=== PATIENT | female | born 1965 ===

== ENCOUNTER 2025-05-24 05:20 | Emergency (ER) | payer MEDICARE, MEDICAID, SELFPAY ==
--- NOTE | ~2025-05-24 | XR_ITS ---
CLINICAL HISTORY: Left sided rib pain 9 view, chest and bilateral ribs Comparison: None provided Findings: No displaced fracture. No destructive osseous lesions identified. Right chest port in place. Heart size is normal. The visualized lungs are normal. IMPRESSION: 1. No acute findings. This document has been electronically signed by: Sofi Perry MD on 05/24/2025 07:33:09
[2025-05-24 05:27] VITALS: BP 204/6; PULSE 58; RESP 20; TEMP 36.7; O2SAT 99; BMI 54.1
--- OUTSIDE RECORDS SUMMARY | 2025-05-24 05:56 | XMS_ITS | Clinical Summary ---
Author Organization [facility] [address] [facility] Address [address] [place] [address] Phone Care Team Providers Care Supervisor Painting Name Role Phone Patric Zayas DO Primary Care Provider [phone] Allergies Active Allergy Reactions Criticality Noted Date Comments Acetaminophen-Codeine 10/18/2017 Other Reaction(s): Hives/Urticaria And throat close Cephalexin 06/03/2017 ? Reaction Codeine 05/13/2017 Cortisone 04/03/2018 Cannot have cortisone injection due to her cancer per patient Diclofenac Sodium Anaphylaxis High 11/06/2017 Other Reaction(s): OTHER Ineffective Oral medication Metronidazole 10/18/2017 ? Reaction Morphine 01/03/2018 Severely irritated IBS ,problems with liver and bowels Nabumetone 06/03/2017 Pregabalin 10/18/2017 Other Reaction(s): OTHER Mood changes severe Medications fluticasone propionate (FLONASE) 50 mcg/actuation nasal spray Administer 2 sprays into each nostril 1 (one) time each day. 0 Active clotrimazole (LOTRIMIN) 1 % cream APPLY A THIN LAYER TO AFFECTED AREA BENEATH BREASTS TWICE A DAY FOR 2 WEEKS 0 Active cetirizine (ZyrTEC) 10 mg tablet Take 1 tablet (10 mg total) by mouth 1 (one) time each day. 9 Active amLODIPine (NORVASC) 10 mg tablet Take 1 tablet (10 mg total) by mouth 1 (one) time each day. 9 Active lisinopril (PRINIVIL,ZESTRIL) 40 mg tablet Take 1 tablet (40 mg total) by mouth 1 (one) time each day. 9 Active metoprolol succinate (TOPROL-XL) 100 mg 24 hr tablet Take 1 tablet (100 mg total) by mouth 1 (one) time each day. 9 Active albuterol HFA (Ventolin HFA) 90 mcg/actuation inhaler Inhale 1-2 Puffs into the lungs every 6 hours as needed for Wheezing or Shortness of Breath. 9 Active esomeprazole (NexIUM) [address] capsule Take 1 Cap by mouth 2 times daily. 9 Active LORazepam (ATIVAN) 1 mg tablet 3 (three) times a day. 8 Active NITROGLYCERIN ORAL Take by mouth. Prn Active ondansetron (ZOFRAN) 4 mg tablet Take 1 tablet (4 mg total) by mouth. Active lidocaine (LIDODERM) 5 % patch APPLY 1 PATCH TOPICALLY TO THE SKIN DAILY. MAY WEAR UP TO 12 HOURS 4 Active ipratropium-albute roL (DUONEB) 0.5-2.5 mg/3 mL nebulizer solution Inhale 3 mL by mouth. 3 Active Breyna 80-4.5 mcg/actuation inhaler INHALE 2 PUFFS BY MOUTH TWICE DAILY J 45.909 4 Active nebulizer and compressor (Comp-Air Nebulizer Compressor) device See Instructions, # 1 each, Maintenance, Use PRN with nebulized mdiations, 02/28/23 13:01:00 EDT, Supply, 160.58, cm, 12/17/22 10:04:00 EST, Height, 103, kg, 03/21/21 13:54:00 EDT, Dry Weight 3 Active hyoscyamine (Levbid) 0.375 mg 12 hr tablet Take 1 tablet (0.375 mg total) by mouth every 12 (twelve) hours if needed for cramping. Do not crush or chew. 60 tablet 12 4 025 Active lactulose (CHRONULAC) solutionIndication s:Constipation by delayed colonic transit TAKE 30 ML BY MOUTH TWICE DAILY 1800 mL 3 5 Active predniSONE (DELTASONE) 5 mg tablet Take 1 tablet (5 mg total) by mouth 1 (one) time each day. Active ondansetron ODT (ZOFRAN-ODT) 4 mg disintegrating tabletIndications: Nausea Take 1 tablet (4 mg total) by mouth every 8 (eight) hours if needed for nausea. 20 tablet 2 5 Active Active Problems Problem Noted Date Diagnosed Date Colon cancer screening 10/07/2024 Assessment & Plan (10/07/2024 1:54 PM EST): Reviewed with patient she has not had a recent colonoscopy and in fact is overdue for colon cancer screening. Discussed options such as fit test, Cologuard and colonoscopy. At this time despite my explanation she refuses colon cancer screening. She is aware of the risks. Abdominal pain 10/07/2024 Assessment & Plan (03/31/2025 2:05 PM EDT): 59-year-old female with history of chronic abdominal pain, status post workup in the past without obvious pathology. I do believe a significant component of this is her IBS which is flared by stress related to her 's poor health. Once more we had a long discussion regarding her medication profile and its appropriate use and timing. 1. Continue hyoscyamine and Nexium. Discussed dosing regimens. 2. Plan for diagnostic gastroscopy given current symptoms. I did review the indications, alternatives and risks which include but are not limited to bleeding, infection, perforation, missed diagnosis, failed procedure, surgery, etc. 3. Consideration for gastric emptying study based on endoscopic findings. Assessment & Plan (10/07/2024 1:54 PM EST): Patient with generalized abdominal pain that has been chronic. More than likely related to her known IBS and constipation. Patient canceled CT scan previously arranged. Is willing to go forward at this time. Orders: CT Abdomen Pelvis wo and w Contrast; Future Lymphoma (CMS/HCC V24, CMS/HCC V28) 10/01/2024 IBS (irritable bowel syndrome) 10/01/2024 Assessment & Plan (03/31/2025 2:05 PM EDT): Once more discussed her chronic issues of IBS. Discussed the role of medication. Discussed the role of diet. Appropriate handouts were provided. 1. Routine follow-up in 1 year. Assessment & Plan (01/08/2025 5:08 PM EST): Appointment cut short, patient refusing to see female provider. Requests appointment be rescheduled with Dr. Escobar-only. Advised her to continue dicyclomine if helpful. Encouraged scheduling of CT scan prior to follow up. Assessment & Plan (10/07/2024 1:54 PM EST): Once more discussed negative impact of stress. Appears to be failing dicyclomine. Will try other IBS med. 1. DC dicyclomine. 2. begin hyoscyamine 0.375 mg p.o. twice daily. 3. Follow-up in 3 months. Allergic rhinitis 06/16/2018 Osteoarthritis 06/10/2018 Overview (09/18/2024): Cervical, Thoracic, & Lumbar spine GERD (gastroesophageal reflux disease) 8 Assessment & Plan (10/07/2024 1:54 PM EST): 58-year-old female with longstanding history of acid reflux and upper GI symptoms. Many of her symptoms revolve around her level of stress and anxiety. We did take the opportunity to review her 2022 endoscopy and biopsies. 1. Continue Nexium 40 mg p.o. twice daily. 2. Reviewed antireflux regimen with handout provided. 3. Discussed antireflux diet. 4. Avoid aspirin and NSAIDs if clinically possible. Osteopenia 06/10/2018 Overview (09/18/2024): Lumbar spine -1.7, femoral neck -1.2 (07/29/17 BMD scanned in 11/2017 transfer records) Chronic low back pain 12/19/2017 Fatty liver 12/19/2017 Assessment & Plan (10/07/2024 1:54 PM EST): Appears stable. Once more discussed the role of weight loss, exercise, lipid control, etc. Anxiety 09/24/2017 Overview (09/18/2024): W/ agoraphobia. Arthritis 09/24/2017 Bipolar disorder ([facility] V24, [facility] V28) 05/2017 HTN (hypertension) 09/24/2017 Encounters Date Type Department Care Team Description 05/11/2025 Telephone Gastroenterology - [address] [facility] [address] [address] Benigno Escobar MD 04/01/2025 Telephone Gastroenterology - [address] [address] [place] 03/31/2025 1:50 PM EDT Office Visit Gastroenterology - [address] [address] Benigno Escobar MD Generalized abdominal pain (Primary Dx); Adenomatous polyp; Irritable bowel syndrome with both constipation and diarrhea 03/10/2025 Telephone Gastroenterology - [address] [place] [phone] Adela Panda NP from Last 3 Months Immunizations Name Administration Dates Next Due Pneumococcal polysaccharide 23 valent (Pneumovax 23) 2yo and older 01/04/2010 Surgical History Surgery Date Site/Laterality Comments OTHER SURGICAL HISTORY PROCEDURE:left inguinal biopsy OTHER SURGICAL HISTORY PROCEDURE:diverticulosi s ESOPHAGOGASTRODUODENOSCOPY 07/19/2023 - 08/17/2023 COLONOSCOPY Medical History Medical History Date Comments GERD (gastroesophageal reflux disease) DX:GERD (gastroesophageal reflux disease) IBS (irritable bowel syndrome) D X:IBS (irritable bowel syndrome) Lymphoma ([facility] V24, [facility] V28) DX:Lymphoma ([facility]) Social History Tobacco Use Types Packs/Day Years Used Date Smoking Tobacco: Former Cigarettes Smokeless Tobacco: Former Tobacco Cessation:Counseling Given: Not Answered Alcohol Use Standard Drinks/Week Comments Not Currently 0 (1 standard drink = 0.6 oz pur e alcohol) ? Comments Unknown Sex and Gender Information Value Date Recorded Sex Assigned at Choose not to disclose 4:06 PM EST Legal Sex Female 10:03 PM EST Gender Identity Choose not to disclose 4:06 PM EST Sexual Orientation Choose not to disclose 2023 4:06 PM EST Obstetrics History Last Filed Vital Signs Vital Sign Reading Time Taken Comments Blood Pressure 205/104 10/12/2024 1:53 PM EST Pulse 87 10/12/2024 1:53 PM EST Temperature 36.9 C (98.5 F) 10/12/2024 1:53 PM EST Respiratory Rate - - Oxygen Saturation 100% 10/12/2024 1:53 PM EST Inhaled Oxygen Concentration - - Weight 98.4 kg (217 lb) 03/31/2025 1:41 PM EDT Height 167.6 cm (5' 6 ) 03/31/2025 1:41 PM EDT Body Mass Index 35.02 03/31/2025 1:41 PM EDT Plan of Treatment Upcoming Encounters Date Type Department Care Team (Late st Contact Info) Description 06/09/2025 8:00 AM EDT Appointment [facility] [address] [place] [id number] Benigno Escobar MD [address] [address] Health Maintenance Due Date Last Done Comments Breast Cancer Screening 1965 DTaP,Tdap,and Td Vaccines (1 - Tdap) 1983 Zoster Vaccines (1 of 2) 1983 Cervical Cancer Screening: P ap Smear 1985 Pneumococcal Vaccine: 50+ Years (2 of 2 - PCV) 01/04/2011 01/04/2010 Pneumococcal Vaccine: Pediatrics (0 to 5 Years) and At-Risk Patients (6 to 64 Years) (2 of 2 - PCV) 01/04/2011 01/04/2010 COVID-19 Vaccine (3 - Modern a risk series) 06/13/2021 05/16/2021, 04/18/2021 Colorectal Cancer Screening: Colonoscopy 10/25/2022 Depression Screening 10/25/2022 HIV Screening 10/25/2022 Medicare Annual Wellness Visit 10/25/2022 Osteoporosis Screening (Bone Density Screening) 10/25/2022 Social Influencers of Health Screening 10/25/2022 Cholesterol Screening (Lipid Panel) 12/11/2023 12/11/2018 Influenza Vaccine (#1) 2025 Hypertension/CHF/CAD Annual BMP Blood Test 11/12/2025 11/12/2024, 06/20/2001 RSV Immunization Adult Patients (1 - 1-dose 75+ series) 2039 Hepatitis C Screening Completed 07/23/2019 HIB Vaccines Aged Out No longer eligi ble based on patient's age to complete this topic HPV Vaccines Aged Out No longer eligi ble based on patient's age to complete this topic Hepatitis A Vaccines Aged Out No long er eligible based on patient's age to complete this topic Hepatitis B Vaccines Aged Out No long er eligible based on patient's age to complete this topic IPV Vaccines Aged Out No longer eligi ble based on patient's age to complete this topic MMR Vaccines Aged Out No longer eligi ble based on patient's age to complete this topic Meningococcal ACWY Vaccine Aged Out N o longer eligible based on patient's age to complete this topic Meningococcal B Vaccine Aged Out No l onger eligible based on patient's age to complete this topic RSV Immunization Patients Under 20 months Aged Out No longer eligible b ased on patient's age to complete this topic Varicella Vaccines Aged Out No longer eligible based on patient's age to complete this topic Procedures Procedure Name Priority Date/Time Associated Diagnosis Comments COMPREHENSIVE METABOLIC PANEL Routine 11/12/2024 3:18 PM EST History of follicular lymphoma HEPATITIS C SCREENING Routine 07/23/2019 LIPID PANEL Routine 12/11/2018 from Last 3 Months or Most Recently Relevant to Health Maintenance Results * (ABNORMAL) Comprehensive metabolic panel (11/12/2024 3:18 PM EST) Sodium 142 133 - 145 mmol/L LAB CHEMISTRY METHOD 11/12/2024 5:09 PM EST [facility] Potassium 3.7 3.5 - 5.5 mmol/L LAB CHEMISTRY METHOD 11/12/2024 5:09 PM EST [facility] Chloride 112(H) 96 - 110 mmol/L LAB CHEMISTRY METHOD 11/12/2024 5:09 PM EST [facility] CO2 27 21 - 32 mmol/L LAB CHEMISTRY METHOD 11/12/2024 5:09 PM [facility] Anion Gap 3 3 - 11 LAB CHEMISTRY METHOD 11/12/2024 5:09 PM [facility] Glucose 104(H) 70 - 100 mg/dL LAB CHEMISTRY METHOD 11/12/2024 5:09 PM [facility] BUN 11 5 - 25 mg/dL LAB CHEMISTRY METHOD 11/12/2024 5:09 PM [facility] Creatinine 0.84 0.50 - 1.30 mg/dL LAB CHEMISTRY METHOD 11/12/2024 5:09 PM [facility] eGFR 80 >=60 mL/min/1. 73m2 LAB CHEMISTRY METHOD 11/12/2024 5:09 PM [facility] Comment: For non-binary individuals or unknown sex, the equation for female sex is used to calculate the estimated glomerular filtration rate (eGFR). Calculation based on the Chronic Kidney Disease Epidemiology Collaboration (CKD-EPI) equation refit without adjustment for race. BUN/Creatinine Ratio 13.1 LAB CHEMISTRY METHOD 11/12/2024 5:09 PM [facility] Calcium 9.2 8.5 - 10.5 mg/dL LAB CHEMISTRY METHOD 11/12/2024 5:09 PM [facility] AST (SGOT) 13 10 - 42 unit/L LAB CHEMISTRY METHOD 11/12/2024 5:09 PM [facility] ALT (SGPT) 22 10 - 60 unit/L LAB CHEMISTRY METHOD 11/12/2024 5:09 PM [facility] Alkaline Phosphatase 63 42 - 121 unit/L LAB CHEMISTRY METHOD 11/12/2024 5:09 PM [facility] Total Protein 6.5 6.0 - 8.0 g/dL LAB CHEMISTRY METHOD 11/12/2024 5:09 PM [facility] Albumin 3.9 3.2 - 5.0 g/dL LAB CHEMISTRY METHOD 11/12/2024 5:09 PM EST [facility] Total Bilirubin 0.5 0.0 - 1.4 mg/dL LAB CHEMISTRY METHOD 11/12/2024 5:09 PM EST [facility] Blood Blood sample taken from central line / Unknown Existing Catheter / Unknown 11/12/2024 3:18 PM EST 11/12/2024 4:38 PM EST Paul Mir MD LAB BLOOD ORDERABLES Final R esult [facility] [address] [place] [address], [place] [phone] * Hepatitis C Screening (07/23/2019) [facility] Hepatitis C Screening abstracted Historical Lou [facility] Final Result * Lipid panel (12/11/2018) [facility] LDL/HDL Ratio 0 Comment:abstracted, no inter pretation Triglycerides 0 mg/dL Comment:abstracted, no inter pretation Cholesterol 0 mg/dL Comment:abstracted, no inter pretation HDL 0 mg/dL Comment:abstracted, no inter pretation LDL Cholesterol 0 mg/dL Comment:abstracted, no inter pretation Blood Venous blood specimen / Unknown Historical Provider LAB BLOOD ORDERABLES Theodora l Result from Last 3 Months or Most Recently Relevant to Health Maintenance Insurance MEDICARE MEDICAID - [place] Care Teams Supervisor Painting Relationship Specialty Start Date End Date Patric Zayas DO [address] [place] [id number] PCP - General Internal Medicine 07/21/21
--- OUTSIDE RECORDS SUMMARY | 2025-05-24 05:57 | XMS_ITS | Clinical Summary ---
Author Organization [facility] Address [address] [place] [address] Care Team Providers Care Teacher Dancing Name Role Phone Patric Zayas MD Primary Care Provider [phone] Allergies Active Allergy Reactions Criticality Noted Date Comments Codeine 05/13/2017 Metronidazole 08/06/2019 Cephalexin 06/03/2017 Morphine 08/06/2019 Nabumetone 06/03/2017 Medications Medication Sig Dispensed Refills Start Date End Date Status albuterol (PROVENTIL HFA;VENTOLIN HFA) 108 (90 BASE) MCG/ACT inhaler Inhale 2 puffs into the lungs every 6 (six) hours as needed for wheezing. 0 Active lisinopril (PRINIVIL,ZESTRIL) tablet 20 mg Take 20 mg by mouth daily. 0 Active esomeprazole (NEXIUM) 40 MG packet Take 80 mg by mouth every morning before breakfast. 0 Active hydrOXYzine (ATARAX/VISTARIL) 25 MG capsule Take 150 mg by mouth daily. 0 Active metoprolol succinate (TOPROL-XL) 24 hr tablet 50 mg Take 100 mg by mouth daily. 0 Active amLODIPine (NORVASC) tablet 10 mg Take 10 mg by mouth daily. 0 Active Benzocaine-Benzethoni um (LANACANE EX) Apply topically as needed. 0 Active fluticasone (FLONASE) 50 MCG/ACT nasal spray spray/apply 1 spray in each nostril daily. 0 Active LORazepam (ATIVAN) 1 MG tablet Take 1 mg by mouth every 6 (six) hours as needed. 0 Active ondansetron (ZOFRAN) 4 MG tablet Take 4 mg by mouth 3 (three) times a day. 0 Active nitroglycerin (NITRODUR) 0.1 MG/HR Place 1 patch onto the skin daily. 0 Active dicyclomine (BENTYL) 10 MG capsule Take 10 mg by mouth 4 (four) times a day before meals and at bedtime. 0 Active amitriptyline (ELAVIL) tablet 50 mg Take 50 mg by mouth daily. 0 Active Active Problems No known active problems Social History Tobacco Use Types Packs/Day Years Used Date Smoking Tobacco: Every Day Cigarettes 0.5 Smokeless Tobacco: Never Comments:pt trying to quite Alcohol Use Standard Drinks/Week Comments No 0 (1 standard drink = 0.6 oz pur e alcohol) Sex and Gender Information Value Date Recorded Sex Assigned at Female 10/15/2022 2:05 PM EST Gender Identity Not on file Sexual Orientation Not on file Job Start Date Occupation Industry Not on file Not on file Not on file Last Filed Vital Signs Vital Sign Reading Time Taken Comments Blood Pressure 180/84 07/10/2022 10:48 AM EDT Pulse 49 07/10/2023 10:44 AM EDT Temperature 36.3 C (97.3 F) 07/10/2023 10:44 AM EDT Respiratory Rate - - Oxygen Saturation 99% 07/10/2023 10:44 AM EDT Inhaled Oxygen Concentration - - Weight 108.9 kg (240 lb) 07/10/2022 10:48 AM EDT Pt reported Height 165.1 cm (5' 5 ) 12/22/2019 3:02 PM EST Body Mass Index 39.94 12/22/2019 3:02 PM EST Plan of Treatment Health Maintenance Due Date Last Done Comments Hepatitis C Screening 1965 COVID-19 Vaccine (#1) 05/24/1965 Depression Screening 1976 Preventative Health Evaluation 1982 Tobacco Cessation Counseling 1982 DTap / Tdap / Td (1 - Tdap) 1983 Cervical Cancer Screening (P ap Smear) 1985 Colon Cancer Screening (Colonoscopy) 2009 Pneumococcal Vaccine (2 of 2 - PCV) 01/04/2011 01/04/2010 Breast Cancer Screening (Mammogram) 2014 Shingrix-Zoster Vaccine (1 of 2) 2014 Influenza Vaccine (#1) 2025 RSV Adult > 60+ Yrs or Pregn ant (1 - 1-dose 75+ series) 2039 Hepatitis B Vaccines Aged Out No long er eligible based on patient's age to complete this topic RSV Ped < 20 months Aged Out No longe r eligible based on patient's age to complete this topic Care Teams Teacher Dancing Relationship Specialty Start Date End Date Patric Zayas MD [address] [place] [address], [place] [address] PCP - General Internal Medicine 07/21/21
--- OUTSIDE RECORDS SUMMARY | 2025-05-24 05:57 | XMS_ITS | Data Portability ---
Author Organization [place] - [facility], Allergy Address [address] [place] [id number] Care Team Providers Care Cyber Operator Name Role Phone VIANEY PATEL Primary Care Provider [phone] Assessment Encounter Date Assessment Date Assessment LastModified by Organization Details LastModified Time 02/26/2025 02/26/2025 T tubes are present bilaterally. No sign of infection. Recommend tube check in 6 months. Patient describes tinnitus and hyperacusis. These may represent sensory overload from her increased stress and migraine. Audiometric testing was obtained confirming bilateral sensorineural hearing loss. Hearing aid evaluation through [facility] provider is recommended. [email or web address] Not available 02/26/2025 10:48:28 Plan of Treatment Reminders Order Date Submit Date Provider Last Modified By Organization Details Last Modified Time Details Appointments Establish ed 15 2024 09:00A M SHAQUILLE VILLAREAL MD Not available Not available Not available Lab None recorded. Referral None recorded. Procedures None recorded. Surgeries None recorded. Imaging None recorded. Medication Orders None recorded. Patient TargetsNo targets recorded. Patient InstructionsNo instructions recorded. Reason for Referral None Reported. Results Created Date Observation Date Name Description Value Unit Range Abnormal Flag Note LastModifiedBy Organization Detail LastModifiedTime 03/01/20 25 audio gram No observ ation record ed. BARCODE Not Available 2024 09:21:06 Result Notes None recorded. Problems Name Problem SNOMED Code Status Onset Date Resolution Date Notes Provider Name and Address Organization Details Recorded Time Otorrhea of bilateral ears 59702393951 88355 Active 2021 Otorrhea, bilateral ; Note: Date Diagnosed : 2 6:06 PM (H92.13) Not Available [facility] 4 03:08:52 Otorrhea of right ear 07395005117 44622 Active 2022 Otorrhea, right ear; Note: Date Diagnosed : 3 12:13 PM (H92.11) Not Available [facility] 4 03:08:52 Abnormal auditory perceptio n 84133207 Active 2016 Other abnormal auditory perceptio ns, bilateral ; Note: Date Diagnosed : 08/05/2017 2:19 PM (H93.293) Not Available [facility] 4 03:08:52 Mixed conductiv e and sensorine ural hearing loss, bilateral 949907492 Active 2020 Mixed conductiv e and sensorine ural hearing loss, bilateral ; Note: Date Diagnosed : 03/06/2021 11:54 AM (H90.6) Not Available [facility] 4 03:08:51 Tobacco user 790528994 Active 2016 Tobacco use; Note: Date Diagnosed : 08/05/2017 2:27 PM (Z72.0) Not Available [facility] 4 03:08:50 Dysphonia 69576146 Active 2022 Hoarsenes s; Note: Date Diagnosed : 05/31/2023 5:12 PM (R49.0) Not Available [facility] 4 03:08:51 Acute serous otitis media of bilateral ears 30195530094 93787 Active 2019 Acute serous otitis media, bilateral ; Note: Date Diagnosed : 01/21/2020 2:45 PM (H65.03) Not Available [facility] 4 03:08:51 Allergic rhinitis 08719948 Active 2021 Other allergic rhinitis; Note: Date Diagnosed : 2 6:06 PM (J30.89) Not Available [facility] 4 03:08:51 Sensorine ural hearing loss of bilateral ears 631337474 Active 2020 Sensorine ural hearing loss, bilateral ; Note: Date Diagnosed : 04/18/2021 10:06 AM (H90.3) Not Available [facility] 4 03:08:51 Bilateral disorder of Eustachia n tubes 07676311131 90062 Active 2016 Other specified disorders of Eustachia n tube, bilateral ; Note: Date Diagnosed : 08/05/2017 2:14 PM (H69.83) Not Available [facility] 4 03:08:51 Dysfuncti on of eustachia n tube 06629914 Active 2020 Eustachia n tube dysfuncti on; Location: bilateral CMS Risk: low risk CMS Treatment : establish ed problem (to examiner) : stable or improved Condition : stable No te: Date Diagnosed : 08/22/2014 12:47 PM (381.81) Not Available [facility] 4 03:08:52 Cervical lymphaden opathy 577826630 Active 2024 SHAQUILLE VILLAREAL MD [address] [place] [address],[place] [address], [place], [phone] , [place] - [facility] 14:24:49 Bilateral tinnitus 40758595842 02 Active 2024 SHAQUILLE VILLAREAL MD [address] [place] [address],[place] [address], [place], [phone] , [place] - [facility] 09:54:49 Hyperacus is 54714134 Active 2024 SHAQUILLE VILLAREAL MD [address] [place] [address],[place] [address], [place], [phone] , [place] - [facility] 09:55:10 Hyperacus is 74864853 Active 2024 SHAQUILLE VILLAREAL MD [address] [place] [address],[place] [address], [place], [phone] , [place] - [facility] 09:55:13 Problem Notes None recorded. Procedures Surgical History Date Name Laterality Status Provider Name and Address Organization Details Recorded Time 02/27/20 25 Comp Audio with Tymps - 36848 & 20728 completed [facility] [address] [facility] [place] [address], [place], [phone], [place] - [facility] 02/26/2025 10:29:38 section completed Do Berg [place] - [facility] 02/26/2025 09:43:00 Myringotomy Tube Placement completed Do Berg [place] - [facility] 02/26/2025 09:43:07 discectomy of spine completed Do Berg [place] [facility] 02/26/2025 09:43:19 ligation of fallopian tube completed Do Berg [place] [facility] 02/26/2025 09:43:25 tooth extraction completed Do Berg [place] [facility] 02/26/2025 09:43:47 Imaging Results None recorded. Procedure Notes None recorded. Medical Equipment None Reported. Allergies Allergen ID Allergen Name Allergen Category Reaction Reaction Severity Criticality Documentation Date Start Date Code Code System Note Provider Name and Address Organization Details Recorded Time 726188 Tylenol with Codeine medicatio n other Not available Not available 03/31/202408771 6 RxNorm React ion: Unkno wn; Not Available [facility] 01:27:10 Medications Name Sig Start Date Stop Date Status Note LastModified by Organization Details LastModified Time doxycycli ne hyclate 100 mg capsule TAKE 1 CAPSULE BY MOUTH TWICE DAILY FOR 7 DAYS 02/26 completed Not Available Not Available Not Available cetirizin e 10 mg tablet TAKE 1 TABLET BY MOUTH EVERY DAY active Not Available Not Available No t Available metoprolo l succinate ER 50 mg tablet,ex tended release 24 hr 02/23 completed Medicati on ID: [id number] D uration Value: 90 Brand Name: metoprol ol succinat e Send Method: E-Prescr ibed Sub s Allowed: subs OK Medic ationGen ericName : metoprol ol succinat e Not Available Not Available Not Available meloxicam 15 mg tablet TAKE 1 TABLET BY MOUTH EVERY DAY 02/26 completed Not Available Not Available Not Available prednison e 20 mg tablet TAKE 3 TABLETS BY MOUTH AT THE SAME TIME IN THE MORNING FOR 3 DAYS THEN TAKE 2 TABLETS BY MOUTH FOR 3 DAYS THEN TAKE 1 TABLET BY MOUTH FOR 3 DAYS 02/26 completed Not Available Not Available Not Available metoprolo l succinate ER 100 mg tablet,ex tended release 24 hr TAKE 1/2 TABLET BY MOUTH EVERY DAY active Not Available Not Available No t Available clonazepa m 1 mg tablet 02/23 completed Medicati on ID: [id number] D uration Value: 30 Brand Name: clonazep am Send Method: E-Prescr ibed Sub s Allowed: subs OK Speci al Instruct ion: TAKE 1 TABLET BY MOUTH EVERY DAY AT BEDTIME NEEDED FOR ANXIETY Medicati onGeneri cName: clonazep am Not Available Not Available Not Available hydroxyzi ne pamoate 50 mg capsule 02/23 completed Medicati on ID: [id number] D uration Value: 30 Brand Name: hydroxyz ine pamoate Send Method: E-Prescr ibed Sub s Allowed: subs OK Speci al Instruct ion: 1 CAPSULE BY MOUTH 3 TIMES A DAY NEEDED FOR ANXIETY Medicati onGeneri cName: hydroxyz ine pamoate Not Available Not Available Not Available ofloxacin 0.3 % ear drops Apply 5 drop into both ears twice a day 02/26 completed Medicati on ID: [id number] D uration Value: 10 Brand Name: ofloxaci n Send Method: E-Prescr ibed Sub s Allowed: subs OK Medic ationGen ericName : ofloxaci n Not Available Not Available Not Available amlodipin e 10 mg tablet TAKE 1 TABLET BY MOUTH DAILY active Not Available Not Available No t Available esomepraz ole magnesium 40 mg capsule,d elayed release TAKE 1 CAPSULE BY MOUTH TWICE DAILY active Not Available Not Available No t Available buspirone 10 mg tablet 02/26 completed Medicati on ID: [id number] B rand Name: buspiron e Send Method: E-Prescr ibed Sub s Allowed: subs OK Medic ationGen ericName : buspiron e Not Available Not Available Not Available lidocaine 5 % topical patch APPLY 1 PATCH TOPICALL Y TO THE SKIN DAILY. MAY WEAR UP TO 12 HOURS active Not Available Not Available No t Available oxycodone 30 mg tablet 02/23 completed Medicati on ID: [id number] D uration Value: 14 Brand Name: oxycodon e Send Method: E-Prescr ibed Sub s Allowed: subs OK Medic ationGen ericName : oxycodon e Not Available Not Available Not Available lorazepam 1 mg tablet TAKE 1 TABLET BY MOUTH THREE TIMES DAILY NEEDED FOR ANXIETY active Not Available Not Available No t Available albuterol sulfate HFA 90 mcg/actua tion aerosol inhaler INHALE 2 PUFFS BY MOUTH EVERY 6 HOURS NEEDED active Not Available Not Available No t Available lisinopri l 40 mg tablet TAKE 1 TABLET BY MOUTH DAILY 02/26 completed Not Available Not Available Not Available ondansetr on 4 mg disintegr ating tablet DISSOLVE 1 TABLET ON THE TONGUE EVERY 8 HOURS NEEDED FOR NAUSEA OR VOMITING active Not Available Not Available No t Available fluticaso ne propionat e 50 mcg/actua tion nasal spray,joanna pension SPRAY 1 SPRAY INTO EACH NOSTRIL EVERY DAY active Not Available Not Available No t Available clotrimaz ole 1 % topical cream APPLY TOPICALL Y TO THE AFFECTED AREA TWICE DAILY FOR 7 DAYS 02/26 completed Not Available Not Available Not Available dicyclomi ne 10 mg capsule TAKE 1 CAPSULE BY MOUTH FOUR TIMES DAILY NEEDED active Not Available Not Available No t Available naproxen 500 mg tablet TAKE 1 TABLET BY MOUTH TWICE DAILY FOR 14 DAYS 02/26 completed Not Available Not Available Not Available amoxicill in 875 mg-potass ium clavulana te 125 mg tablet TAKE 1 TABLET BY MOUTH EVERY 12 HOURS FOR 7 DAYS 02/26 completed Not Available Not Available Not Available Afrin (oxymetaz oline) 0.05 % nasal spray 2 spray into both nostrils 02/26 completed Medicati on ID: [id number] D uration Value: 3 Prescri bed By Name: KELLY Lane nd Name: Afrin (oxymeta zoline) Send Method: E-Prescr ibed Sub s Allowed: subs OK Medic ationGen ericName : Afrin (oxymeta zoline) Not Available Not Available Not Available Ciprodex 0.3 %-0.1 % ear drops,joanna pension Apply 4 drop into right ear twice a day 02/26 completed Medicati on ID: [id number] D uration Value: 14 Brand Name: Ciprodex Send Method: E-Prescr ibed Sub s Allowed: subs OK Medic ationGen ericName : Ciprodex Not Available Not Available Not Available lactulose 10 gram/15 mL oral solution TAKE 30 ML BY MOUTH TWICE DAILY active Not Available Not Available No t Available Advair HFA 115 mcg-21 mcg/actua tion aerosol inhaler INHALE 2 PUFFS BY MOUTH TWICE DAILY. RINSE MOUTH AND THROAT AFTER USE 02/26 completed Not Available Not Available Not Available oxycodone 20 mg tablet 02/23 completed Medicati on ID: [id number] D uration Value: 28 Brand Name: oxycodon e Send Method: E-Prescr ibed Sub s Allowed: subs OK Medic ationGen ericName : oxycodon e Not Available Not Available Not Available Breyna 80 mcg-4.5 mcg/actua tion HFA aerosol inhaler INHALE 2 PUFFS BY MOUTH TWICE DAILY J 45.909 active Not Available Not Available No t Available Vitals None Recorded Social History None recorded. Functional Status None recorded. Mental Status None recorded. Family History Nothing Reported. Medical History Condition Response Allergies/Hayfever Y Arthritis Y GERD/Reflux Y Cancer Y Migraines Y Headaches Y Fibromyalgia Y Hypertension Y Asthma Y Gynecological HistoryNo gynecological history recorded. Obstetrics History GPAL:G 0 P 0 0 0 0 Past Encounters Encounter ID Performer Location Encounter Start Date Encounter Closed Date Diagnosis/Indication Diagnosis SNOMED-CT Code Diagnosis ICD10 Code Diagnosis Note [id number] SHAQUILLE VILLAREAL MD [facility] [address] [address] 12/16/2024 14:26:08 12/16/2024 14:57:11 Cervical lymphadenopathy 360841457 R59.0 [id number] SHAQUILLE VILLAREAL MD [facility] [address] [address] 02/26/2025 09:30:04 02/26/2025 10:53:40 Bilateral tinnitus 5957339167 102 H93.13 Hyperacusis 99114017 H93 .233 Sensorineu ral hearing loss of bilateral ears 616410967 H90.3 [id number] KATHLEEN COLON [facility] [address] [address] 02/26/2025 10:29:12 03/01/2025 16:50:52 Sensorineural hearing loss of bilateral ears 115400054 H90.3 Audiologic al evaluation results: Right ear: Mild sloping to severe sensorineu ral hearing loss with good word recognitio n. Left ear: Mild sloping to profound sensorineu ral hearing loss with good word recognitio n. Tympanomet ry: Right Ear:Type B with large volume Left Ear:Type B with large volume Health Concerns Section Related Observation LastModified by Organization Detai ls LastModified Time None Recorded Concern Status LastModified by Organization Details LastModified Time None Recorded Advance Directives Directive None Recorded Payers Insurance Date Sequence Insurance Name Policy Number Policy Sun Covered Member ID Sun Member ID Guarantor Name 02/26/2025 1 [place] [employer] Pooja Ribeiro [id number] Pooja Ribeiro 02/23/2025 2 [place] [facility] Pooja Graciae [id number] Pooja Ribeiro Notes Date Note Type Note Provider Name and Address Organization Details Recorded Time 5 text/html Submental adenopathy 03/20/21 Gregory MUÑOZ, endoscopic bx - benign, [facility] 10/11/23 Kathie - right otorrhea rx ciprodex SHAQUILLE VILLAREAL MD [address] [place] [address], [phone], [facility] 12/16/2024 14:27:38 5 text/html ear pressure12/2024 started new med for IBS, shortly after developed tinnitus and sound sensitivitydecreased use of the med but continues with tinnitusmore stress with information that a cancer will need more treatment was offered hearing aids in past but is reluctant 03/20/21 Gregory MUÑOZ endoscopic bx - benign, [facility] 10/11/23 Kathie - right otorrhea rx ciprodex SHAQUILLE VILLAREAL MD [address] [place] [address],[address], [phone], [place] - [facility] 02/26/2025 10:48:41 OBGyn Episode No OBEpisode recorded.
[2025-05-24 07:45] VITALS: BP 170/85; PULSE 50; RESP 16; TEMP 36.1; O2SAT 98
--- NOTE | 2025-05-24 07:56 | ED.FALL ---
HPI - Fall General Chief Complaint: Fall Stated Complaint: left rib pain, fall Time Seen by Provider: 05/24/25 07:52 Source: patient Mode of arrival: ambulatory Limitations: no limitations History of Present Illness HPI Narrative: This is 59 years old the patient with a history of lymphoma presented to the emergency department complaining of left chest wall pain she said that she fell on Saturday fell down the stairs the fall was a mechanical no syncope denies any neck pain any abdominal pain any headache she is not anticoagulated Onset (ago): day(s) (3) Fall from: down stairs (#) Place fall occurred: home Loss of consciousness: none Symptoms prior to fall: none Context: tripped/slipped Severity: moderate Quality: burning and dull Associated symptoms (after fall): denies Related Data Previous Rx's ?Medication ?Instructions ?Recorded oxycodone 5 mg tablet 5 mg PO Q6H PRN pain #15 tabs 05/24/25 Allergies Allergy/AdvReac Type Severity Reaction Status Date / Time codeine (CODEINE) Allergy Mild HIVES Verified 05/24/25 05:31 acetaminophen Allergy Unknown Unknown Verified 05/24/25 05:31 (Tylenol-Codeine #3) cephalexin (Keflex) Allergy Unknown Vomiting Verified 05/24/25 05:31 metronidazole (Flagyl) Allergy Unknown Vomiting Verified 05/24/25 05:31 Review of Systems Constitutional: Constitutional: Reports no additional constitutional complaints Cardiovascular: Cardiovascular: Reports no additional cardiovascular complaints Musculoskeletal: Musculoskeletal: Reports no additional musculoskeletal complaints [facility] Past Medical History Attestation statement: The following information was validated with the patient. [facility] Narrative: History of lymphoma history of hypertension Social History Social History Substance Use Type: Marijuana Physical Exam Vital Signs: Vital Signs: Last Vital Signs Temp 97.0 F 05/24/25 08:10 Pulse 50 05/24/25 08:10 Resp 16 05/24/25 08:10 BP 170/85 H 05/24/25 08:10 Pulse Ox 98 05/24/25 08:10 O2 Del Method Room Air 05/24/25 08:10 BMI result Body Mass Index 54.1 Not acute distress Const: General: cooperative Nutritional Appearance: average body habitus Orientation/consciousness: patient oriented x3 HEENT: Head: Yes normal to inspection General nose exam: Normal external nose present Face and sinus: Yes normal facial exam Neck: Other: Supple no tenderness full range of motion Neck: Yes normal visual inspection Chest: Other: Tenderness in the left chest wall Resp: Effort & Inspection: normal respiratory effort Auscultation: clear to auscultation bilaterally Cardio: Jugular venous distension: no JVD Rate: regular rate Rhythm: regular rhythm GI: Inspection: Yes normal to inspection Palpation (GI): Soft to palpation Skin: General skin exam: no rashes or lesions noted Lesions: no lesions Rashes: no rashes Neuro: General: patient oriented x3 Cranial nerves: Yes CN's II-XII intact bilaterally Extrem: General: Yes normal to inspection and Yes full ROM Medical Decision Making Medical Decision Making [facility] Narrative: Patient is here after a fall complaining of left chest wall pain we will obtain x-ray Differential Diagnosis Differential Diagnoses: The differential diagnosis associated with the presentation includes Pneumothorax/ribs fracture/pulmonary contusion Admission/Observation Consideration of admission/observation: Escalation of care including admission/observation considered Independent Interpretation I performed an independent interpretation of an: Plain X-Ray Radiology Impression Discussion of test interpretation with radiology: I discussed test interpretation with the radiologist and I have reviewed the radiologist's reading. Discharge Plan Discharge Clinical Impression: Chest wall contusion Qualifiers: Encounter type: initial encounter Laterality: left Qualified Code(s): S20.212A - Contusion of left front wall of thorax, initial encounter Patient Disposition: Home, Self-Care Instructions: Chest Contusion (ED) Prescriptions: New oxycodone 5 mg tablet 5 mg PO Q6H PRN (Reason: pain) Qty: 15 0RF Rx Instructions: partial filing upon pt request; Partial Fill upon patient request. Interventions: ED Discharge Assessment Last Done: 05/24/25 08:10 Discharge Date/Time: 05/24/25 08:11 Print Language: Chinese
[2025-05-24 08:10] VITALS: BP 170/85; PULSE 50; RESP 16; TEMP 36.1; O2SAT 98
== END 2025-05-24 08:11 | disposition home or self-care (01) ==
PROVIDERS: Emergency Provider Emergency Medicine
DX: S20.212A Contusion of left front wall of thorax, initial encounter (principal); R07.81 Pleurodynia; X58.XXXA Exposure to other specified factors, initial encounter; W10.9XXA Fall (on) (from) unspecified stairs and steps, initial encounter; Y93.01 Activity, walking, marching and hiking; Y92.9 Unspecified place or not applicable; Y99.8 Other external cause status
CPT/HCPCS: 71111; 99283; 99284

== ENCOUNTER → 2025-05-24 06:00 | Outpatient (BNV) | payer MEDICARE, MEDICAID, SELFPAY | PROVIDERS: Emergency Provider Emergency Medicine; Visit Provider Radiology Diagnostic Radiology | DX: R07.89 Other chest pain (principal) | CPT/HCPCS: 71111 ==

== ENCOUNTER 2025-05-29 11:31 | Emergency (ER) | payer MEDICARE, MEDICAID, SELFPAY ==
--- NOTE | ~2025-05-29 | CT_ITS ---
CLINICAL HISTORY: fell one week ago, neg xray 5 days ago --- Additional Notes or Special Instructions: worsening chest wall pain CT chest without contrast Comparison: CR - XR RIBS BI MIN 4V W CXR1V - 05/24/25 06:06 EDT Findings: The heart size is normal. The visualized thyroid and mediastinum are unremarkable. The lungs are clear. No effusion or pneumothorax. There is a right IJ chest port with catheter tip at the cavoatrial junction. There are stones in the gallbladder. No acute fractures. Punctate calcified pulmonary nodule in the right lung, consistent with previous granulomatous disease. Lungs are otherwise clear. IMPRESSION: 1. Unremarkable chest CT. This document has been electronically signed by: Marito Patricia MD on 05/29/2025 13:30:44
[2025-05-29 11:49] VITALS: BP 179/116; PULSE 90; RESP 18; TEMP 37.1; O2SAT 96; BMI 35.3
--- NOTE | 2025-05-29 11:53 | ED_ITS ---
HPI - Fall General Chief Complaint: General Medical Stated Complaint: rib pain Time Seen by Provider: 05/29/25 13:39 Source: patient Mode of arrival: ambulatory Limitations: no limitations History of Present Illness ED Provider: Lo Ocampo PA-C HPI Narrative: 1;45 pm: Patient is requesting to go home and understands that her blood pressure is always elevated and it could mean further heart tissue injury and she does not lower it she declines for further workup but this and just wanted to be seen for her ribs and was requesting pain medications specifically was Tylenol codeine and to be sent home. Related Data Previous Rx's ?Medication ?Instructions ?Recorded oxycodone 5 mg tablet 5 mg PO Q6H PRN pain #15 tab s 05/24/25 oxycodone 5 mg tablet 5 mg PO Q6H PRN severe pain (scale 05/29/25 score 7-10) #15 tabs oxycodone 5 mg tablet 5 mg PO Q6H PRN severe pain (scale 05/29/25 score 7-10) #15 tabs Allergies Allergy/AdvReac Type Severity Reaction Status Date / Time codeine (CODEINE) Allergy Mild HIVES Verified 05/29/25 11:55 acetaminophen Allergy Unknown Unknown Verified 05/29/25 11:55 (Tylenol-Codeine #3) cephalexin (Keflex) Allergy Unknown Vomiting Verified 05/29/25 11:55 metronidazole (Flagyl) Allergy Unknown Vomiting Verified 05/29/25 11:55 [facility] Social History Social History Substance Use Type: Marijuana Advance Directives: No Advance Directives Information Provided: Yes Physical Exam Vital Signs: Vital Signs: Last Vital Signs Temp 97.8 F 05/29/25 13:59 Pulse 72 05/29/25 13:59 Resp 18 05/29/25 13:59 BP 231/135 H 05/29/25 13:59 Pulse Ox 97 05/29/25 13:59 O2 Del Method Room Air 05/29/25 13:59 BMI result Body Mass Index 35.3 Course Course Course Narrative: RME 1155 am 05/29/25 Lo Ocampo PA-C: We will defer full ROS and PE to treating provider. Patient presents with left-sided chest wall pain and pain in her left knee over the past week. One week ago she had a mechanical fall down the stairs. She was seen here in the ED this past Saturday 5 days ago she had a negative chest x-ray. She was advised to follow up with orthopedics who can not see her for a while. She was advised to go to the ED if the pain worsened she states that it has. She feels it right underneath her breasts it feels the same pain as when she had when she fell denies any cardiac symptoms. She is not on any anticoagulation. tried ice, heat, pain patches, heat, all not helping. Hx of cancer. B cell lymphoma. Findings: No displaced fracture. No destructive osseous lesions identified. Right chest port in place. Heart size is normal. The visualized lungs are normal. IMPRESSION: 1. No acute findings. Medical Decision Making Medical Decision Making MDM Narrative: Given the severity of the patient's pain, a short course of opiates was prescribed. MassPAT was checked and I had no concern regarding frequent prescriptions / multiple prescriptions.The patient was provided counseling about opiates regarding addictive properties, disposal and side effects.? Discharge Plan Discharge Clinical Impression: Chest wall muscle strain, Contusion of rib on left side Patient Disposition: Home, Self-Care Instructions: Chest Wall Pain (ED) Additional Instructions: We did a chest CT for further evaluate your rib pain s/p fall following normal chest xray. It was normal. You have rib contusion and serratus anterior muscle strain. A serratus anterior muscle strain refers to an injury to the serratus anterior muscle, which is located on the side of the chest, beneath the armpit. It plays an important role in stabilizing the shoulder blade and helping to lift the arm. A strain occurs when the muscle is overstretched or torn, often due to repetitive activity, trauma, or overuse. Patient Information for Serratus Anterior Muscle Strain: 1. Symptoms: * Pain in the upper chest, typically on the side of the ribcage, under the armpit, or along the side of the ribs. * Sharp or aching pain that may worsen with specific movements such as lifting t he arm, reaching, or pushing. * Difficulty with breathing deeply or performing certain motions due to pain. * Tenderness to the touch along the affected area. * Weakness or discomfort when trying to push or pull with the arm. * In some cases, there may be mild swelling or bruising in the affected area. 2. Common Causes: * Overuse or repetitive movements involving the shoulder and upper body (e.g., overhead sports like swimming, tennis, or weightlifting). * Trauma or direct injury to the chest wall (e.g., a fall, collision, or sudden twisting motion). * Improper technique during exercise or lifting can strain the muscle. * Sudden, forceful movements such as reaching, lifting, or pushing. 3. Diagnosis: * Physical examination: A healthcare provider will palpate (feel) the chest and side to assess tenderness, swelling, and range of motion. * Movement testing: They may ask the patient to perform specific movements (such as lifting the arm overhead) to see if it causes pain or discomfort, which can help confirm a muscle strain. * Imaging: In some cases, X-rays or MRI may be ordered if there is concern for more serious injury (such as a rib fracture or damage to other structures). 4. Treatment: Rest and Ice: * Rest: Avoid activities that aggravate the pain, especially overhead movements and heavy lifting. * Ice: Apply ice or a cold pack to the affected area for 15?20 minutes, several times a day, for the first 48?72 hours to reduce inflammation and swelling. Pain Relief: * Ibxr-mmr-yajkovd pain relievers like ibuprofen or acetaminophen can help manage pain and inflammation. Always follow dosing instructions and consult a healthcare provider if you have concerns, especially if you're on other medications. Compression and Support: * Elastic bandage: Wrapping or using a chest support can provide compression, helping reduce swelling and providing stability to the area. However, this should not be too tight as it can restrict breathing. Gentle Stretching and Strengthening: * After the acute pain subsides, gentle stretching and strengthening exercises can help restore range of motion and prevent future injury. A physical therapist may recommend specific exercises for the serratus anterior and surrounding muscles. * Strengthening: Gradually, as healing occurs, strengthening exercises can help stabilize the shoulder and chest muscles. Avoid pushing into pain. Gradual Return to Activity: * Avoid rushing back into activities that stress the chest and shoulder muscles. A slow, progressive return to activity is deshpande to preventing re-injury. 5. Recovery Timeline: * Mild strain: Recovery can take anywhere from 1-2 weeks, depending on the severity of the strain. * Moderate to severe strain: Recovery may take 3-6 weeks or longer, particularly if there is significant muscle damage. * Chronic cases: If not properly treated or if the injury is recurrent, the strain can become chronic and may require more intensive rehabilitation. 6. When to Seek Medical Attention: * If the pain does not improve with rest and basic treatment. * If there is severe pain, swelling, or bruising that persists. * If there is difficulty breathing deeply or if the pain radiates to the arm, back, or jaw (which could suggest a more serious condition such as heart problems). * If there is a clicking or popping sound during movement, which might indicate more severe injury. 7. Preventive Measures: * Proper warm-up and stretching before engaging in any strenuous activity. * Correct posture and body mechanics during exercise or lifting. * Strengthening of the upper body muscles, including the serratus anterior, to help prevent strain. * Avoiding overtraining and allowing sufficient recovery time between workouts. Summary: A serratus anterior muscle strain can be treated effectively with rest, ice, pain relief, and gradual rehabilitation. The condition typically improves over time with proper care, but it's important to follow appropriate guidelines for recovery to avoid reinjury. If symptoms are severe or persistent, consult a healthcare provider for further evaluation and treatment. Prescriptions: New oxycodone 5 mg tablet 5 mg PO Q6H PRN (Reason: severe pain (scale score 7-10)) Qty: 15 0RF Rx Instructions: Partial Fill upon patient request. oxycodone 5 mg tablet 5 mg PO Q6H PRN (Reason: severe pain (scale score 7-10)) Qty: 15 0RF Rx Instructions: Partial Fill upon patient request. No Action oxycodone 5 mg tablet 5 mg PO Q6H PRN (Reason: pain) Qty: 15 0RF Rx Instructions: partial filing upon pt request; Partial Fill upon patient request. Referrals: [facility] [Provider Group, Pain Management] Referral Note: chronic pain Interventions: ED Discharge Assessment Last Done: 05/29/25 13:59 Discharge Date/Time: 05/29/25 14:02 Print Language: Kiswahili
[2025-05-29 13:42] VITALS: BP 231/135; PULSE 72; RESP 18; TEMP 36.6; O2SAT 97
--- NOTE | 2025-05-29 13:48 | PC.NURSE ---
Pt requesting to be DC from the waiting room, BP elevated, PA aware, education given, pt still wanting to be DC at this time.
--- OUTSIDE RECORDS SUMMARY | 2025-05-29 13:52 | XMS_ITS | Data Portability ---
Author Organization [place] [facility], Allergy Address [address] [place] [id number] Care Team Providers [facility] [employer] Name Role Phone VIANEY PATEL Primary Care Provider [phone] Assessment Encounter Date Assessment Date Assessment LastModified by Organization Details LastModified Time 02/26/2025 02/26/2025 T tubes are present bilaterally. No sign of infection. Recommend tube check in 6 months. Patient describes tinnitus and hyperacusis. These may represent sensory overload from her increased stress and migraine. Audiometric testing was obtained confirming bilateral sensorineural hearing loss. Hearing aid evaluation through [facility] provider is recommended. [email or web address] Not available 02/26/2025 [...] Details Recorded Time Otorrhea of bilateral ears [id number] 92738 Active 2021 Otorrhea, bilateral ; Note: Date Diagnosed : 2 6:06 PM (H92.13) Not Available [facility] 4 03:08:52 Otorrhea of right ear 13283029276 10687 Active 2022 Otorrhea, right ear; Note: Date Diagnosed : 3 12:13 PM (H92.11) Not Available [facility] 4 03:08:52 Abnormal auditory perceptio n 75054186 Active 2016 Other abnormal auditory perceptio ns, bilateral ; Note: Date Diagnosed : 08/05/2017 2:19 PM (H93.293) Not Available [facility] 4 03:08:52 Mixed conductiv e and sensorine ural hearing loss, bilateral 721309049 Active 2020 Mixed conductiv e and sensorine ural hearing loss, bilateral ; Note: Date Diagnosed : 03/06/2021 11:54 AM (H90.6) Not Available [facility] 4 03:08:51 Tobacco user 533859590 Active 2016 Tobacco use; Note: Date Diagnosed : 08/05/2017 2:27 PM (Z72.0) Not Available [facility] 4 03:08:50 Dysphonia 23163468 Active 2022 Hoarsenes s; Note: Date Diagnosed : 05/31/2023 5:12 PM (R49.0) Not Available [facility] 4 03:08:51 Acute serous otitis media of bilateral ears 26395488431 70753 Active 2019 Acute serous otitis media, bilateral ; Note: Date Diagnosed : 01/21/2020 2:45 PM (H65.03) Not Available [facility] 4 03:08:51 Allergic rhinitis 16149224 Active 2021 Other allergic rhinitis; Note: Date Diagnosed : 2 6:06 PM (J30.89) Not Available [facility] 4 03:08:51 Sensorine ural hearing loss of bilateral ears 815918659 Active 2020 Sensorine ural hearing loss, bilateral ; Note: Date Diagnosed : 04/18/2021 10:06 AM (H90.3) Not Available [facility] 4 03:08:51 Bilateral disorder of Eustachia n tubes 32145715680 82558 Active 2016 Other specified disorders of Eustachia n tube, bilateral ; Note: Date Diagnosed : 08/05/2017 2:14 PM (H69.83) Not Available [facility] 4 03:08:51 Dysfuncti on of eustachia n tube 73034051 Active 2020 Eustachia n tube dysfuncti on; Location: bilateral CMS Risk: low risk CMS Treatment : establish ed problem (to examiner) : stable or improved Condition : stable No te: Date Diagnosed : 08/22/2014 12:47 PM (381.81) Not Available [facility] 4 03:08:52 Cervical lymphaden opathy 342388963 Active 2024 SHAQUILLE VILLAREAL MD [address] [place] [address],[place] [address], [place], [phone] , [place] [facility] 14:24:49 Bilateral tinnitus 65196348326 02 Active 2024 SHAQUILLE VILLAREAL MD [address] [place] [address],[place] [address], [place], [phone] , [place] [facility] 09:54:49 Hyperacus is 30491987 Active 2024 SHAQUILLE VILLAREAL MD [address] [place] [address],[place] [address], [place], [phone] , [place] [facility] 09:55:10 Hyperacus is 66259833 Active 2024 SHAQUILLE VILLAREAL MD [address] [place] [address],[place] [address], [place], [phone] , [place] [facility] 09:55:13 Problem Notes None recorded. Procedures Surgical History Date Name Laterality Status Provider Name and Address Organization Details Recorded Time 02/27/20 25 Comp Audio with Tymps - 17107 & 28874 completed [facility]ON [address] [facility] [place] [address], [place], [phone], [place] - [facility] 02/26/2025 10:29:38 section completed Do Berg [place] - [facility] 02/26/2025 09:43:00 Myringotomy Tube Placement completed Do Berg [place] - [facility] 02/26/2025 09:43:07 discectomy of spine completed Do Berg [place] [facility] 02/26/2025 09:43:19 ligation of fallopian tube completed Do Berg [place] [facility] 02/26/2025 09:43:25 tooth extraction completed Do Berg [place] [facility] 02/26/2025 09:43:47 Imaging Results None recorded. Procedure Notes None recorded. Medical Equipment None Reported. Allergies Allergen ID Allergen Name Allergen Category Reaction Reaction Severity Criticality Documentation Date Start Date Code Code System Note Provider Name and Address Organization Details Recorded Time 770236 Tylenol with Codeine medicatio n other Not available Not available 03/31/202459372 6 RxNorm React ion: Unkno wn; Not Available [facility] 01:27:10 Medications Name Sig Start [...] 24 hr 02/23 completed Medicati on ID: [id number] D uration Value: 90 Brand Name: metoprol [...] mg tablet 02/23 completed Medicati on ID: [id number] D uration Value: 30 Brand Name: clonazep am Send Method: E-Prescr ibed Sub s Allowed: subs OK Speci al Instruct ion: TAKE 1 TABLET BY MOUTH EVERY DAY AT BEDTIME NEEDED FOR ANXIETY Medicati onGeneri cName: clonazep am Not Available Not Available Not Available hydroxyzi ne pamoate 50 mg capsule 02/23 completed Medicati on ID: [id number] D uration Value: 30 Brand Name: hydroxyz [...] a day 02/26 completed Medicati on ID: [id number] D uration Value: 10 Brand Name: ofloxaci [...] mg tablet 02/26 completed Medicati on ID: [id number] B rand Name: buspiron e Send Method: E-Prescr ibed Sub s Allowed: subs OK Medic ationGen ericName : buspiron e Not Available Not Available Not Available lidocaine 5 % topical patch APPLY 1 PATCH TOPICALL Y TO THE SKIN DAILY. MAY WEAR UP TO 12 HOURS active Not Available Not Available No t Available oxycodone 30 mg tablet 02/23 completed Medicati on ID: [id number] D uration Value: 14 Brand Name: oxycodon [...] both nostrils 02/26 completed Medicati on ID: [id number] D uration Value: 3 Prescri bed By Name: KELLY Lane nd Name: Afrin (oxymeta zoline) Send Method: E-Prescr ibed Sub s Allowed: subs OK Medic ationGen ericName : Afrin (oxymeta zoline) Not Available Not Available Not Available Ciprodex 0.3 %-0.1 % ear drops,joanna pension Apply 4 drop into right ear twice a day 02/26 completed Medicati on ID: [id number] D uration Value: 14 Brand Name: Ciprodex [...] mg tablet 02/23 completed Medicati on ID: [id number] D uration Value: 28 Brand Name: oxycodon [...] Reported. Medical History Condition Response Allergies/Hayfever Y Migraines Y Arthritis Y Cancer Y Asthma Y GERD/Reflux Y Headaches Y Fibromyalgia Y Hypertension Y Gynecological HistoryNo gynecological history recorded. Obstetrics History GPAL:G 0 P 0 0 0 0 Past Encounters Encounter ID Performer Location Encounter Start Date Encounter Closed Date Diagnosis/Indication Diagnosis SNOMED-CT Code Diagnosis ICD10 Code Diagnosis Note [id number] SHAQUILLE VILLAREAL MD [facility] [address] [address] 12/16/2024 14:26:08 12/16/2024 14:57:11 Cervical lymphadenopathy 774524055 R59.0 [id number] SHAQUILLE VILLAREAL MD [facility] [address] [address] 02/26/2025 09:30:04 02/26/2025 10:53:40 Bilateral tinnitus 4397797673 102 H93.13 Hyperacusis 04578695 H93 .233 Sensorineu ral hearing loss of bilateral ears 543916202 H90.3 [id number] KATHLEEN COLON [facility] [address] [address] 02/26/2025 10:29:12 03/01/2025 16:50:52 Sensorineural hearing loss of bilateral ears 965871178 H90.3 Audiologic al evaluation results: Right ear: [...] ID Guarantor Name 02/26/2025 1 [place]IC[place] B[place]: [employer] Pooja Ribeiro [id number] Pooja Ribeiro 02/23/2025 2 [place] [facility] Pooja Graciae [id number] Pooja Ribeiro Notes Date Note Type Note Provider Name and Address Organization Details Recorded Time 5 text/html Submental adenopathy 03/20/21 Gregory MUÑOZ, endoscopic bx - benign, BMT [facility] 10/11/23 Kathie - right otorrhea rx ciprodex SHAQUILLE VILLAREAL MD [address] [place] [address], [phone], [facility] 12/16/2024 14:27:38 5 text/html ear pressure12/2024 [...] right otorrhea rx ciprodex SHAQUILLE VILLAREAL MD [address] [place] [address],[address], [phone], [place] - [facility] 02/26/2025 10:48:41 OBGyn Episode No OBEpisode recorded.
--- OUTSIDE RECORDS SUMMARY | 2025-05-29 13:52 | XMS_ITS | Clinical Summary ---
Author Organization [facility] 299 [facility] Address [address] [place] [address] Phone Care Team Providers Care Salon Receptionist Name Role Phone Patric Zayas DO Primary Care Provider [phone] Allergies Active Allergy Reactions Criticality Noted Date [...] each nostril 1 (one) time each day. Active clotrimazole (LOTRIMIN) 1 % cream APPLY A THIN LAYER TO AFFECTED AREA BENEATH BREASTS TWICE A DAY FOR 2 WEEKS Active cetirizine (ZyrTEC) 10 mg tablet Take 1 tablet (10 mg total) by mouth 1 (one) time each day. Active amLODIPine (NORVASC) 10 mg tablet Take 1 tablet (10 mg total) by mouth 1 (one) time each day. Active lisinopril (PRINIVIL,ZESTRIL ) 40 mg tablet Take 1 tablet (40 mg total) by mouth 1 (one) time each day. Active metoprolol succinate (TOPROL-XL) 100 mg 24 hr tablet Take 1 tablet (100 mg total) by mouth 1 (one) time each day. Active albuterol HFA (Ventolin HFA) 90 mcg/actuation inhaler Inhale 1-2 Puffs into the lungs every 6 hours as needed for Wheezing or Shortness of Breath. Active esomeprazole (NexIUM) [address] capsule Take 1 Cap by mouth 2 times daily. Active LORazepam (ATIVAN) 1 mg tablet 3 (three) times a day. Active NITROGLYCERIN ORAL Take by mouth. Prn Active ondansetron (ZOFRAN) 4 mg tablet Take 1 tablet (4 mg total) by mouth. Active lidocaine (LIDODERM) 5 % patch APPLY 1 PATCH TOPICALLY TO THE SKIN DAILY. MAY WEAR UP TO 12 HOURS Active ipratropium-albut Teagan (DUONEB) 0.5-2.5 mg/3 mL nebulizer solution Inhale 3 mL by mouth. Active Breyna 80-4.5 mcg/actuation inhaler INHALE 2 PUFFS BY MOUTH TWICE DAILY J 45.909 Active nebulizer and compressor (Comp-Air Nebulizer Compressor) device See Instructions, # 1 each, Maintenance, Use PRN with nebulized mdiations, 02/28/23 13:01:00 EDT, Supply, 160.58, cm, 12/17/22 10:04:00 EST, Height, 103, kg, 03/21/21 13:54:00 EDT, Dry Weight 023 Active hyoscyamine (Levbid) 0.375 mg 12 hr tablet Take 1 tablet (0.375 mg total) by mouth every 12 (twelve) hours if needed for cramping. Do not crush or chew. 60 tablet 12 024 2024 Active lactulose (CHRONULAC) solutionIndicatio ns:Constipation by delayed colonic transit TAKE 30 ML BY MOUTH TWICE DAILY 1800 mL 3 025 Active predniSONE (DELTASONE) 5 mg tablet Take 1 tablet (5 mg total) by mouth 1 (one) time each day. Active ondansetron ODT (ZOFRAN-ODT) 4 mg disintegrating tabletIndications :Nausea DISSOLVE 1 TABLET(4 MG) ON THE TONGUE EVERY 8 HOURS NEEDED FOR NAUSEA 20 tablet 2 025 Active bisacodyL (DULCOLAX) 5 mg EC tablet Take 2 tablets by mouth right before beginning bowel prep. See instructions provided by the office 2 tablet Active polyethylene glycol (Golytely) 236-22.74-6.74 -5.86 gram solution Take 4L by mouth once for one dose. May substitue any PEG. Starting at 2PM the day before your procedure drink 1 8oz glasses at your own pace until you complete half of the gallon. Finish 2nd half of the gallon at 8PM. 4000 mL 025 Active ondansetron ODT (ZOFRAN-ODT) 4 mg disintegrating tabletIndications :Nausea Take 1 tablet (4 mg total) by mouth every 8 (eight) hours if needed for nausea. 20 tablet 2 025 2024 Discontinued Active Problems Problem Noted Date Diagnosed Date [...] provider. Requests appointment be rescheduled with Dr. Escobar-roxie. Advised her to continue dicyclomine if helpful. [...] (09/18/2024): W/ agoraphobia. Arthritis 09/24/2017 Bipolar disorder ([facility] V24, [facility] V28) 05/2017 HTN (hypertension) 09/24/2017 Encounters Date Type Department Care Team Description 05/11/2025 Telephone Gastroenterology - [address] [place] [phone] Benigno Escobar MD 04/01/2025 Telephone Gastroenterology - [address] [place] [phone] [place] 03/31/2025 1:50 PM EDT Office Visit Gastroenterology - [address] [place] [phone] Benigno Escobar MD Generalized abdominal pain (Primary Dx); Adenomatous polyp; Irritable bowel syndrome with both constipation and diarrhea 03/10/2025 Telephone Gastroenterology - [address] [address] Adela Panda NP from Last 3 [...] syndrome) D X:IBS (irritable bowel syndrome) Lymphoma ([facility] V24, [facility] V28) DX:Lymphoma ([facility]) Social History Tobacco Use Types Packs/Day Years [...] Info) Description 06/09/2025 8:00 AM EDT Appointment [facility] Endoscopy [address] [place] [address] Benigno Escobar MD [address] [address] Health Maintenance Due Date Last Done Comments [...] 3:18 PM EST History of follicular lymphoma HM HEPATITIS C SCREENING Routine 07/23/2019 LIPID PANEL Routine 12/11/2018 from Last 3 Months or Most Recently Relevant to Health Maintenance Results * (ABNORMAL) Comprehensive metabolic panel (11/12/2024 3:18 PM EST) Sodium 142 133 - 145 mmol/L LAB CHEMISTRY METHOD 11/12/2024 5:[address] [facility] Potassium 3.7 3.5 - 5.5 mmol/L LAB CHEMISTRY METHOD 11/12/2024 5:[address] [facility] Chloride 112(H) 96 - 110 mmol/L LAB CHEMISTRY METHOD 11/12/2024 5:[address] [facility] CO2 27 21 - 32 mmol/L LAB CHEMISTRY METHOD 11/12/2024 5:[address] [facility] Anion Gap 3 3 - 11 LAB CHEMISTRY METHOD 11/12/2024 5:[address] [facility] Glucose 104(H) 70 - 100 mg/dL LAB CHEMISTRY METHOD 11/12/2024 5:[address] [facility] BUN 11 5 - 25 mg/dL LAB CHEMISTRY METHOD 11/12/2024 5:[address] [facility] Creatinine 0.84 0.50 - 1.30 mg/dL LAB CHEMISTRY METHOD 11/12/2024 5:[address] [facility] eGFR 80 >=60 mL/min/1. 73m2 LAB CHEMISTRY METHOD 11/12/2024 5:[address] [facility] Comment: For non-binary individuals or unknown sex, the equation for female sex is used to calculate the estimated glomerular filtration rate (eGFR). Calculation based on the Chronic Kidney Disease Epidemiology Collaboration (CKD-EPI) equation refit without adjustment for race. BUN/Creatinine Ratio 13.1 LAB CHEMISTRY METHOD 11/12/2024 5:[address] [facility] Calcium 9.2 8.5 - 10.5 mg/dL LAB CHEMISTRY METHOD 11/12/2024 5:[address] [facility] AST (SGOT) 13 10 - 42 unit/L LAB CHEMISTRY METHOD 11/12/2024 5:[address] [facility] ALT (SGPT) 22 10 - 60 unit/L LAB CHEMISTRY METHOD 11/12/2024 5:[address] [facility] Alkaline Phosphatase 63 42 - 121 unit/L LAB CHEMISTRY METHOD 11/12/2024 5:[address] [facility] Total Protein 6.5 6.0 - 8.0 g/dL LAB CHEMISTRY METHOD 11/12/2024 5:[address] [facility] Albumin 3.9 3.2 - 5.0 g/dL LAB CHEMISTRY METHOD 11/12/2024 5:[address] [facility] Total Bilirubin 0.5 0.0 - 1.4 mg/dL LAB CHEMISTRY METHOD 11/12/2024 5:[address] [facility] Blood Blood sample taken from central line / Unknown Existing Catheter / Unknown 11/12/2024 3:18 PM EST 11/12/2024 4:38 PM EST Paul Mir MD LAB BLOOD ORDERABLES Final R esult [facility] [address] [place] [address], * Hepatitis C Screening (07/23/2019) Pathologist [facility] Hepatitis C Screening abstracted Historical Provider HEALTH MAINTENANCE Final Result * Lipid panel (12/11/2018) Pathologist [facility] LDL/HDL Ratio 0 Comment:abstracted, no inter pretation [...] Insurance MEDICARE [place]ICA[place] - [place] Care Teams Salon Receptionist Relationship Specialty Start Date End Date Patric Zayas DO [address] [place] [id number] PCP - General Internal Medicine 07/21/21
--- OUTSIDE RECORDS SUMMARY | 2025-05-29 13:52 | XMS_ITS | Clinical Summary ---
Author Organization [facility] Address [address] [place] [address] Care Team Providers Care Explosive Ordnance Disposal Technician Name Role Phone Patric Zayas MD Primary Care Provider [phone] Allergies Active Allergy Reactions Criticality Noted Date [...] age to complete this topic Care Teams Explosive Ordnance Disposal Technician Relationship Specialty Start Date End Date Patric Zayas MD [address] [place] [address], [place] [address] PCP - General Internal Medicine 07/21/21
[2025-05-29 13:59] VITALS: BP 231/135; PULSE 72; RESP 18; TEMP 36.6; O2SAT 97
== END 2025-05-29 14:02 | disposition home or self-care (01) ==
PROVIDERS: Emergency Provider Emergency Medicine
DX: S29.011A Strain of muscle and tendon of front wall of thorax, initial encounter (principal); W10.9XXA Fall (on) (from) unspecified stairs and steps, initial encounter; Y93.9 Activity, unspecified; Y92.9 Unspecified place or not applicable; Y99.9 Unspecified external cause status; M25.562 Pain in left knee
CPT/HCPCS: 71250; 99282; 99284

== ENCOUNTER → 2025-05-29 11:53 | Outpatient (BNV) | payer MEDICARE, MEDICAID, SELFPAY | PROVIDERS: Emergency Provider Emergency Medicine; Visit Provider Radiology Diagnostic Radiology | DX: R07.89 Other chest pain (principal); W19.XXXD Unspecified fall, subsequent encounter | CPT/HCPCS: 71250 ==

== ENCOUNTER 2025-06-18 12:09 | Outpatient (AMB) | payer MEDICARE, MEDICAID, SELFPAY ==
--- NOTE | 2025-06-18 12:11 | MHC.OFFVIS ---
Vital Signs 06/18/25 12:14 Height 5 ft 6 in Weight 218 lb 6 oz BMI 35.2 BP 189/85 H Blood Pressure Location Lt brachial Position Sitting Respiration 20 Pulse 65 Pulse Source Pulse Oximeter Pulse Oximetry (%) 98 Intake Visit Reasons: Rib Pain/ED Referral Field Reimbursement Manager Required: No Allergies codeine (CODEINE) Allergy (Mild, Verified 06/21/25 13:59) HIVES acetaminophen (Tylenol-Codeine #3) Allergy (Unknown, Verified 06/21/25 13:59) Unknown cephalexin (Keflex) Allergy (Unknown, Verified 06/21/25 13:59) Vomiting metronidazole (Flagyl) Allergy (Unknown, Verified 06/21/25 13:59) Vomiting HPI HPI Rib Pain/ED Referral: Details: History of Present Illness The patient is a 59-year-old female presenting with chest wall pain and left knee pain following a mechanical fall. She was seen in the emergency department where a chest X-ray was performed and returned negative for acute findings. The patient has a history of Chronic Obstructive Pulmonary Disease (COPD), which contributes to her feeling winded. She also experiences anxiety related to medical visits, described as white coat syndrome, stemming from past negative experiences with healthcare providers. The patient has been diagnosed with follicular lymphoma stage 4, grade B, with significant bone marrow involvement. She has a history of lymph node involvement initially found in the left groin and later under the right arm. The patient has undergone chemotherapy in the past but is allergic to certain chemotherapy agents, which complicates her treatment options. The patient reports a history of degenerative joint disease and degenerative disc disease, with thinning discs noted in her back. She has received cortisone injections in various joints, including shoulders, hips, and back, to manage pain and inflammation. The patient also suffers from irritable bowel syndrome (IBS), which developed after chemotherapy, leading to severe gastrointestinal symptoms. She has experienced unexplained vomiting and weight loss, prompting multiple upper gastrointestinal investigations without definitive findings. Anxiety and insomnia are significant issues for the patient, exacerbated by her caregiving responsibilities for a family member with chronic heart failure and kidney disease. She reports difficulty sleeping, often only achieving one to two hours of rest despite medication. Pain Description - Pain onset: Many years - Pain quality: Described as aching and burning - Primary location: Left chest wall and left knee - Radiation: Pain radiates from lower back to toes - Exacerbating factors: Standing, bending, and driving - Relieving factors: Lidocaine patches and cortisone injections in the past; exhausted PT and HEP - Interference: Pain interferes with sleep and daily activities Physical Exam - Musculoskeletal: Flexion and left shoulder bending and rotations produce axial low back pain Results - Imaging: Chest X-ray negative for acute findings - Imaging: Lumbar spine MRI from 2020 shows endplate edema and Modic changes at L5-S1 Pain Management - Affect: Anxiety and stress due to caregiving responsibilities and medical conditions - Analgesia: Current use of lidocaine patches and cortisone injections; pain persists despite treatment - Adverse Effects: Gastrointestinal issues from ibuprofen, leading to IBS - Activities of Daily Living: Pain limits ability to perform daily tasks and affects sleep - Aberrant Drug Related Behaviors: None reported PFSH Medical History (Updated 06/22/25 @ 12:56 by Julio C Caceres MD) Rib pain Hypertension Lymphoma Surgical History (Updated 06/21/25 @ 13:58 by Marilyn Lopez) Hx of tubal ligation Hx of tonsillectomy Social History (Updated 06/21/25 @ 14:03 by Marilyn Lopez) Household Members: None Housing: Apartment Are you a primary child adolescent care to a significant other at home: Yes Do you presently have visiting nurse or other home services: No Patient Tobacco Use Status: Former Tobacco user Tobacco use type: Cigarette Use of substances other than those prescribed or required for medical reasons: Yes Substance Use Type: Marijuana Have you been hit, kicked, punched, or otherwise hurt by someone within the past year? If so, by whom?: No Do you feel safe in your current relationship?: Yes Do you have thoughts of harming others: None Do you have a plan to hurt others: No Plan service: No Current occupational status: disabled Physical Exam Vital Signs: Last Vital Signs Pulse 65 06/18/25 12:14 Resp 20 06/18/25 12:14 BP 189/85 H 06/18/25 12:14 Pulse Ox 98 06/18/25 12:14 BMI result Body Mass Index 35.2 Assessment & Plan Assessment & Plan (1) Vertebrogenic low back pain: Code(s): M54.51 - Vertebrogenic low back pain Category: Medical Plan Plan - Proceed with Intracept procedure for L3-L4 and L5-S1 levels to address axial low back pain. - Provided brochures for various treatment options, including nerve stimulator procedures, for patient review and consideration. - Recommend MRI to assess current spinal condition prior to procedure. - Discuss with oncologist regarding the safety of cortisone injections in the context of lymphoma treatment. Patient was informed and verbally consented to the use of an ambient scribe for clinic note documentation during this visit. Discussion Notes I discussed with the patient the potential benefits and risks of the Intracept procedure for managing her axial low back pain, emphasizing the minimal downtime and the potential for significant pain relief. We also reviewed alternative treatment options, including nerve stimulator procedures, and I provided brochures for further information. The importance of obtaining a new MRI to evaluate her current spinal condition was highlighted, and I advised her to consult with her oncologist regarding the use of cortisone injections given her lymphoma diagnosis. Patient Instructions - Review the brochures provided on treatment options and consider which might be suitable for you. - Schedule and complete the MRI to assess your spinal condition before the procedure. - Discuss with your oncologist about the safety of cortisone injections in relation to your lymphoma treatment. - Follow up with our office after reviewing the materials to discuss your treatment plan. Coding Level of Care Code New Pt Level 4 (45583) Diagnoses Vertebrogenic low back pain M54.51
[2025-06-18 12:14] VITALS: BP 189/85; PULSE 65; RESP 20; O2SAT 98; BMI 35.2
--- OUTSIDE RECORDS SUMMARY | 2025-06-18 12:14 | XMS_ITS | Clinical Summary ---
Author Organization [facility] 299 [facility] Address [address] [place] [address] Phone Care Team Providers Care Spray I Painter Name Role Phone Patric Zaays DO Primary Care Provider [phone] Allergies Active Allergy Reactions Criticality Noted Date Comments Azithromycin Nausea And Vomiting 06/02/2025 Cephalexin Nausea And Vomiting 06/03/2017 Ciprofloxacin 06/02/2025 Other Reaction(s): itchy urine dark upset stomach Codeine 05/13/2017 Cortisone 04/03/2018 Cannot have cortisone injection due to her cancer per patient Diclofenac Sodium Anaphylaxis High 11/06/2017 Ineffective Oral medication Doxycycline Anaphylaxis,Nausea A nd Vomiting High 06/02/2025 Metronidazole Nausea And Vomiting 10/18/2017 ? Reaction Morphine 01/03/2018 Severely irritated IBS ,problems with liver and bowels Nabumetone 06/03/2017 Pregabalin 10/18/2017 Mood changes severe Other Reaction(s): confusion, memory loss Rituximab Anaphylaxis High 06/02/2025 Medications fluticasone propionate (FLONASE) 50 mcg/actuation nasal [...] by mouth 1 (one) time each day. Occasional BID for tachycardia Active albuterol HFA (Ventolin HFA) 90 mcg/actuation [...] 103, kg, 03/21/21 13:54:00 EDT, Dry Weight Active hyoscyamine (Levbid) 0.375 mg 12 hr tablet Take 1 tablet (0.375 mg total) by mouth every 12 (twelve) hours if needed for cramping. Do not crush or chew. 60 tablet 12 024 2024 Active predniSONE (DELTASONE) 5 mg tablet Take 1 tablet (5 mg total) by mouth 1 (one) time each day. Active ondansetron ODT (ZOFRAN-ODT) 4 mg disintegrating tabletIndications :Nausea DISSOLVE 1 TABLET(4 MG) ON THE TONGUE EVERY 8 HOURS NEEDED FOR NAUSEA 20 tablet 2 Active bisacodyL (DULCOLAX) 5 mg EC tablet Take 2 tablets by mouth right before beginning bowel prep. See instructions provided by the office 2 tablet 025 Active polyethylene glycol (Golytely) 236-22.74-6.74 -5.86 gram solution Take 4L by mouth once for one dose. May substitue any PEG. Starting at 2PM the day before your procedure drink 1 8oz glasses at your own pace until you complete half of the gallon. Finish 2nd half of the gallon at 8PM. 4000 mL 025 Active lactulose (CHRONULAC) solutionIndicatio ns:Constipation by delayed colonic transit TAKE 30 ML BY MOUTH TWICE DAILY 5552 mL 1 025 Active lactulose (CHRONULAC) solutionIndicatio ns:Constipation by delayed colonic transit TAKE 30 ML BY MOUTH TWICE DAILY 1800 mL 3 025 2024 Discontinued ondansetron ODT (ZOFRAN-ODT) 4 mg disintegrating tabletIndications [...] (09/18/2024): W/ agoraphobia. Arthritis 09/24/2017 Bipolar disorder ([facility] V24, [facility] V28) 05/2017 HTN (hypertension) 09/24/2017 Encounters Date Type Department Care Team Description 06/14/2025 Telephone Gastroenterology - [address] [address] Benigno Escobar MD 06/14/2025 Telephone Gastroenterology - [address] [place] [phone] Benigno Escobar MD Advice Only; special procedure 05/11/2025 Telephone Gastroenterology - [address] [address] Benigno Escobar MD 04/01/2025 Telephone Gastroenterology - [address] [address] [place] 03/31/2025 1:50 PM EDT Office Visit Gastroenterology - [address] [place] [address] Benigno Escobar MD Generalized abdominal pain (Primary Dx); Adenomatous polyp; Irritable bowel syndrome with both constipation and diarrhea from Last 3 Months Immunizations Name Administration [...] syndrome) D X:IBS (irritable bowel syndrome) Lymphoma ([facility] V24, [facility] V28) DX:Lymphoma ([facility]) Social History Tobacco Use Types Packs/Day Years [...] Care Team (Late st Contact Info) Description 08/12/2025 9:20 AM EDT Office Visit Gastroenterology - [address] [facility] [address] [place] [phone] Kathrin Hester PA [address] [place] [address] Health Maintenance Due Date Last Done Comments Breast Cancer Screening 1965 DTaP,Tdap,and Td Vaccines (1 - Tdap) 1983 Zoster Vaccines (1 of 2) 1983 Cervical Cancer Screening: P ap Smear 1985 Pneumococcal Vaccine: 50+ Years (2 of 2 - PCV) 01/04/2011 01/04/2010 COVID-19 Vaccine (3 - Modern a risk series) 06/13/2021 05/16/2021, 04/18/2021 Colorectal Cancer Screening: Colonoscopy 10/25/2022 HIV Screening 10/25/2022 Medicare Annual Wellness Visit 10/25/2022 Osteoporosis Screening (Bone Density Screening) 10/25/2022 Social Influencers of Health Screening 10/25/2022 Cholesterol Screening (Lipid Panel) 12/11/2023 12/11/2018 Depression Screening 11/18/2024 Influenza Vaccine (#1) 2025 Hypertension/CHF/CAD Annual BMP [...] mmol/L LAB CHEMISTRY METHOD 11/12/2024 5:09 PM [facility] Potassium 3.7 3.5 - 5.5 mmol/L LAB CHEMISTRY METHOD 11/12/2024 5:09 PM [facility] Chloride 112(H) 96 - 110 mmol/L LAB CHEMISTRY METHOD 11/12/2024 5:09 PM [facility] CO2 27 21 - 32 mmol/L LAB CHEMISTRY METHOD 11/12/2024 5:09 PM [facility] Anion Gap 3 3 - 11 LAB CHEMISTRY METHOD 11/12/2024 5:09 PM [facility] Glucose 104(H) 70 - 100 mg/dL LAB CHEMISTRY METHOD 11/12/2024 5:09 PM [facility] BUN 11 5 - 25 mg/dL LAB CHEMISTRY METHOD 11/12/2024 5:09 PM [facility] Creatinine 0.84 0.50 - 1.30 mg/dL LAB CHEMISTRY METHOD 11/12/2024 5:09 PM [facility] eGFR 80 >=60 mL/min/1. 73m2 LAB CHEMISTRY METHOD 11/12/2024 5:09 PM [facility] Comment: For non-binary individuals or unknown sex, the equation for female sex is used to calculate the estimated glomerular filtration rate (eGFR). Calculation based on the Chronic Kidney Disease Epidemiology Collaboration (CKD-EPI) equation refit without adjustment for race. BUN/Creatinine Ratio 13.1 LAB CHEMISTRY METHOD 11/12/2024 5:09 PM [facility] Calcium 9.2 8.5 - 10.5 mg/dL LAB CHEMISTRY METHOD 11/12/2024 5:09 PM [facility] AST (SGOT) 13 10 - 42 unit/L LAB CHEMISTRY METHOD 11/12/2024 5:09 PM [facility] ALT (SGPT) 22 10 - 60 unit/L LAB CHEMISTRY METHOD 11/12/2024 5:09 PM [facility] Alkaline Phosphatase 63 42 - 121 unit/L LAB CHEMISTRY METHOD 11/12/2024 5:09 PM [facility] Total Protein 6.5 6.0 - 8.0 g/dL LAB CHEMISTRY METHOD 11/12/2024 5:09 PM [facility] Albumin 3.9 3.2 - 5.0 g/dL LAB CHEMISTRY METHOD 11/12/2024 5:09 PM [facility] Total Bilirubin 0.5 0.0 - 1.4 mg/dL LAB CHEMISTRY METHOD 11/12/2024 5:09 PM [facility] Blood Blood sample taken from central line / Unknown Existing Catheter / Unknown 11/12/2024 3:18 PM EST 11/12/2024 4:38 PM EST Paul Mir MD LAB BLOOD ORDERABLES Final R esult [facility] [address] [place] [address], * Hepatitis C Screening (07/23/2019) [facility] Hepatitis C Screening abstracted [facility] Provider HEALTH MAINTENANCE Final Result * Lipid panel (12/11/2018) LDL/HDL Ratio 0 Comment:abstracted, no inter pretation Triglycerides 0 mg/dL Comment:abstracted, no inter pretation Cholesterol 0 mg/dL Comment:abstracted, no inter pretation HDL 0 mg/dL Comment:abstracted, no inter pretation LDL Cholesterol 0 mg/dL Comment:abstracted, no inter pretation Blood Venous blood specimen / Unknown us Historical Provider LAB BLOOD ORDERABLES Theodora l Result from Last 3 Months or Most Recently Relevant to Health Maintenance Insurance MEDICARE MEDICAID - [place] Care Teams Spray I Painter Relationship Specialty Start Date End Date Patrci Zayas DO [address] [place] [phone] PCP - General Internal Medicine 07/21/21
--- OUTSIDE RECORDS SUMMARY | 2025-06-18 12:14 | XMS_ITS | Clinical Summary ---
Author Organization [facility] Address [address] [place] [address] Care Team Providers Care Track Moving Machine Operator Name Role Phone Patric Zayas MD Primary Care Provider [phone] Allergies Active Allergy Reactions Criticality Noted Date [...] age to complete this topic Care Teams Track Moving Machine Operator Relationship Specialty Start Date End Date Patric Zayas MD [address] [place] [address], [place] [address] PCP - General Internal Medicine 07/21/21
== END 2025-06-18 12:44 | disposition home or self-care (01) ==
LOC: HO.PMC 12:10
PROVIDERS: Visit Provider Internal Medicine
DX: M54.51 Vertebrogenic low back pain (principal)
CPT/HCPCS: 99204

== ENCOUNTER → 2025-06-18 12:09 | Outpatient (BNVA) | payer MEDICARE, MEDICAID, SELFPAY | PROVIDERS: Visit Provider Internal Medicine | DX: M54.51 Vertebrogenic low back pain (principal) | CPT/HCPCS: 99202 ==

== ENCOUNTER → 2025-07-01 13:40 | Outpatient (BNV) | payer MEDICARE, MEDICAID, SELFPAY | PROVIDERS: Visit Provider Internal Medicine Medical Oncology | DX: C82.25 Follicular lymphoma grade III, unspecified, lymph nodes of inguinal region and lower limb (principal) | CPT/HCPCS: 99204 ==

== ENCOUNTER 2025-07-06 13:01 | Outpatient (AMB) | payer MEDICARE, MEDICAID, SELFPAY ==
--- OUTSIDE RECORDS SUMMARY | 2025-07-02 23:59 | XMS_ITS | Continuity of Care Document ---
Author Organization [facility] Address [address] [place] [id number]- Care Team Providers Care Pricing Lead Name Role Phone Sancho DEVINE, Say Torres Primary Care Physicia n Encounter [facility] Date(s): 06/02/25 - 07/02/[address] [address]- Attending Physician: Admtr, Ar8 Admitting Physician: Admtr, Ar8 Referring Physician: Admtr, Ar8 Encounter Type: Triage Allergies, Adverse Reactions, Alerts Substance Criticality Severity Reaction Reaction Severity Status azithromycin vomiting Active Tylenol with Codeine #3 unknown Active riTUXimab Active Lyrica confusion, kathia ry loss Active doxycycline throat closing Vomiting Active Cipro itchy urine jason k upset stomach Active Keflex vomit Active Flagyl vomiting Active Immunizations Given and Recorded Vaccine Date Status Refusal Reason Pneumococcal Poly (PPV23) (oldterm) 1 01/04/10 Giv en 1Admin Note: vis Medications albuterol 0.083% inhalation solution 3 mL = 2.5 mg, Inhalation, Every 4 hours, PRN for wheezing/shortness of breath, ICD-10: Asthma J45.909, # 60 each, 3 Refills, Maintenance, 06/14/25 10:06:00 AM EDT, Solution, [facility] #[id number], Partial fill upon patient request if the prescription is for a schedule II opioid drug., 160.58,cm, 12/11/24 9:57:00 EST, Height Start Date: 06/14/25 Status: Ordered Quantity: 60.0 Unit: each Repeat number: 4 albuterol-ipratropium 3 mg-0.5 mg/3 ml inhalation solution 3 mL, Neb, 4 times a day, PRN Wheezing/Shortness of Breath, j44.9, # 360 mL, 4 Refills, Maintenance, 05/13/23 4:35:00 PM EDT, Solution, [facility] #[id number], Partial fill upon patient request if the prescription is for a schedule II opioid drug., 3 mL Neb 4 times a day,PRN:Wheezing/Shortness of Breath,Instr:j44.9, 160.58, cm, 04/29/23 12:47:00 EDT, Height Start Date: 05/13/23 Status: Ordered Quantity: 360.0 Unit: mL Repeat number: 5 amLODIPine 10 mg oral tablet 1 tablet, By Mouth, Daily, # 90 tablet, 0 Refills, Maintenance, 05/11/25 2:48:00 PM EDT, [facility] #[id number], 160.58, cm, 12/11/24 9:57:00 EST, Height Start Date: 05/11/25 Status: Ordered Quantity: 90.0 Unit: tablet Repeat number: 1 Astepro Allergy 205.5 mcg/inh (0.15%) nasal spray 2 sprays, Nares, Both, 2 times a day, # 30 mL, 3 Refills, Maintenance, 12/17/22 10:47:00 AM EST, [facility] #[id number], Partial fill upon patient request if the prescription is for a schedule IIopioid drug., 2 sprays Nares, Both 2 times a day, 160.58, cm, 12/17/22 10:04:00 EST, Height, 103, kg, 03/21/21 13:54:00 EDT, Dry Weight Start Date: 12/17/22 Status: Ordered Quantity: 30.0 Unit: mL Repeat number: 4 Azithromycin 5 Day Dose Pack 250 mg oral tablet 1 pack/packet, By Mouth, Once, as directed on package labeling, # 6 tablet, 0 Refills, Soft Stop, 04/20/25 4:42:00 PM EDT, Tablet, [facility] #[id number], Partial fill upon patient request if the prescription is for a schedule II opioid drug., 160.58, cm, 12/11/24 9:57:00 EST, Height Start Date: 04/20/25 Status: Ordered Quantity: 6.0 Unit: tablet Repeat number: 1 Blood Pressure Monitor See Instructions, # 1 kit, Refills 0, Tot. Refills 0, Maintenance, take blood pressure as directed,03/09/21 1:44:00 PM EDT, Supply Start Date: 03/09/21 Status: Ordered Quantity: 1.0 Unit: kit Repeat number: 1 Blood Pressure Monitor See Instructions, # 1 kit, Maintenance, follow bp randomly 3 times/day, 06/14/25 2:05:00 PM EDT, Supply, 160.58, cm, 06/14/25 13:19:00 EDT, Height Start Date: 06/14/25 Status: Ordered Quantity: 1.0 Unit: kit Repeat number: 1 Breyna 80 mcg-4.5 mcg/inh inhalation aerosol 2 puffs, Inhalation, 2 times a day, J 45.909., # 10.3 Gm, 11 Refills, Maintenance, 12/29/24 3:24:00 PM EST, [facility] #[id number], 30, INHALE 2 PUFFS BY MOUTH TWICE DAILY J 45.909, 160.58, cm, 12/11/24 9:57:00 EST, Height Start Date: 12/29/24 Status: Ordered Quantity: 10.3 Unit: g Repeat number: 1 cetirizine 10 mg oral tablet 1 tablet = 10 mg, By Mouth, Daily, PRN allergies, # 30 tablet, 5 Refills, Maintenance, 04/11/17 3:40:57 PM EDT, Tablet, [facility] Start Date: 04/11/17 Stop Date: 10/08/17 Status: Ordered Quantity: 30.0 Unit: tablet Repeat number: 6 dicyclomine 10 mg oral capsule 1 capsule = 10 mg, By Mouth, 4 times a day, # 28 capsule, 0 Refills, Maintenance, 12/17/22 10:07:00 AM EST, Capsule, Partial fill upon patient request if the prescription is for a schedule II opioid drug. Start Date: 12/17/22 Stop Date: 12/24/22 Status: Ordered Quantity: 28.0 Unit: capsule Repeat number: 1 Face masks Face masks, See Instructions, # 2 box, Refills 11, Tot. Refills 11, Maintenance, Face masks for PCAto use [facility], 04/30/17 1:08:09 PM EDT, Compound Start Date: 04/30/17 Status: Ordered Quantity: 2.0 Unit: box Repeat number: 12 Flonase 50 mcg/inh nasal spray 2 sprays, Nasal, Daily, # 1 each, 5 Refills, Maintenance, allergic rhinitis, 09/10/17 2:42:39 PM EDT, [facility], 2 sprays Nasal Daily,x30 days Start Date: 09/10/17 Stop Date: 03/09/18 Status: Ordered Quantity: 1.0 Unit: each Repeat number: 6 Gloves See Instructions, # 2 box, Refills 11, Tot. Refills 11, Maintenance, Medium gloves for MEDICAL PSYCHOTHERAPIST use [facility], 04/30/17 1:06:33 PM EDT, Compound Start Date: 04/30/17 Status: Ordered Quantity: 2.0 Unit: box Repeat number: 12 lidocaine 5% topical film APPLY 1 PATCH TOPICALLY TO THE SKIN DAILY. MAY WEAR UP TO 12 HOURS Start Date: 11/04/24 Status: Ordered Repeat number: 1 LORazepam 1 mg oral tablet 1 tablet = 1 mg, By Mouth, 2 times a day, 0 Refills, Maintenance, 11/21/18 8:11:45 AM EST Start Date: 11/21/18 Status: Ordered Repeat number: 1 Metoprolol Succinate ER 100 mg oral tablet, extended release 0.5, tablet, By Mouth, Daily, # 45 tablet, Refills 0, Maintenance, 06/15/25 8:24:00 AM EDT, [facility]arm[facility]ically, [facility][id number], 160.58, cm, 06/14/25 13:19:00 EDT, Height Start Date: 06/15/25 Status: Ordered Quantity: 45.0 Unit: tablet Repeat number: 1 Nebulizer Nebulizer, See Instructions, # 1 each, Refills 0, Tot. Refills 0, Maintenance, Small volume nebulizer/compressor, all nebulizer circuits, filters, mask and related supplies Length of Need: 99 months Diagnosis:, 03/05/23 1:50:00 PM EDT, Supply Start Date: 03/05/23 Status: Ordered Quantity: 1.0 Unit: each Repeat number: 1 Nebulizer/Compressor See Instructions, # 1 each, Maintenance, Use PRN with nebulized mdiations, 02/28/23 1:01:00 PM EDT, Supply, 160.58, cm, 12/17/22 10:04:00 EST, Height, 103, kg, 03/21/21 13:54:00 EDT, Dry Weight Start Date: 02/28/23 Status: Ordered Quantity: 1.0 Unit: each Repeat number: 1 Nexium 40 mg oral enteric coated capsule 1 capsule = 40 mg, By Mouth, 2 times a day, # 90 capsule, 0 Refills, Maintenance, 03/07/17 12:26:04 PM EDT, EC Capsule Start Date: 03/07/17 Status: Ordered Quantity: 90.0 Unit: capsule Repeat number: 1 nitroglycerin 0.4 mg sublingual tablet 1 tablet = 0.4 mg, Sublingual, Every 5 minutes, PRN Chest Pain, 0 Refills, Maintenance, 03/15/21 12:07:00 PM EDT, Partial fill upon patient request if the prescription is for a schedule II opioid drug. Start Date: 03/15/21 Status: Ordered Repeat number: 1 ondansetron 4 mg oral tablet, disintegrating 1 tablet = 4 mg, By Mouth, Every 8 hours, PRN Nausea & Vomiting, dx chronic nausea NOS, in carewith GI specialist., # 20 tablet, 5 Refills, Maintenance, 09/10/17 2:46:56 PM EDT, Tablet, [facility] Start Date: 09/10/17 Status: Ordered Quantity: 20.0 Unit: tablet Repeat number: 6 predniSONE 20 mg oral tablet See Instructions, Take 2 tablets by mouth daily x 5 days, then 1.5 tablets by mouth daily x 2 days,then 1 tablet by mouth daily x 2 days, then 0.5 tablet by mouth daily x 2 days, then stop, # 16 tablet, 0 Refills, Maintenance, 04/20/25 4:43:00 PM EDT, [facility] #[id number], Partial fill upon patient request if the prescription is for a schedule II opioid drug., 160.58, cm, 12/11/24 9:57:00 EST, Height Start Date: 04/20/25 Status: Ordered Quantity: 16.0 Unit: tablet Repeat number: 1 Pulse oximeter Pulse oximeter, See Instructions, # 1 each, Refills 0, Tot. Refills 0, Maintenance, Pulse oximeter J45.909, 09/28/24 8:53:00 AM EST, Supply, 160.58, cm, 05/08/24 11:17:00 EDT, Height Start Date: 09/28/24 Status: Ordered Quantity: 1.0 Unit: each Repeat number: 1 valsartan 160 mg oral tablet 160 mg, 1, tablet, By Mouth, Daily, # 90 tablet, Refills 1, Tot. Refills 1, Maintenance, 06/14/25 2:02:00 PM EDT, Route to Pharmacy Electronically, [facility] #[id number], Partial fill upon patient request if the prescription is for a schedule II opioid drug., 160.58, cm, 06/14/25 13:19:00 EDT,Height Start Date: 06/14/25 Status: Ordered Quantity: 90.0 Unit: tablet Repeat number: 2 Ventolin HFA 108 mcg/inh inhalation aerosol with adapter 2 puffs, Inhalation, 4 times a day, PRN for wheezing, # 3 each, 3 Refills, Maintenance, 06/14/25 10:06:00 AM EDT, Aerosol, [facility] #[id number], 160.58, cm, 12/11/24 9:57:00 EST, Height Start Date: 06/14/25 Status: Ordered Quantity: 3.0 Unit: each Repeat number: 4 Problem List Condition Confirmation Course Effective Dates Status Health St atus Informant Acid reflux 1, 2, 3, 4 Confirmed Active Allergic rhinitis Confirmed Active Bipolar disorder 5, 6, 7, 8, 9, 10, 11, 12 Confirmed Active Constipation Confirmed Active Current smoker Confirmed Active DJD (degenerative joint disease), cervical 13 Confirmed Active Atherogenic dyslipidemia 14 Confirmed Active Elevated transaminase level 15, 16 Confirmed Active Follicular lymphoma grade III 17, 18, 19, 20 Confirmed Active Goal--to be cancer free Confirmed Active H/O sinus bradycardia 21 Confirmed Active HTN (hypertension) Confirmed Active Irritable bowel Confirmed Active Lumbar herniated disc 22, 23, 24, 25, 26, 27 Confirmed Active Controlled substance agreement signed 7-21-17 28, 29, 30, 31, 32 Confirmed Active CCC CM Patric Crocker RN [phone] Confirmed Active Severe obesity (BMI 35.0-39.9) with comorbidity Confirmed Active 1endoscopy 02/29/16, Dr Escobar-normal on visualization, biopsies show reactive chemical gastritis, and duodenal biopsy showing focal surface antral metaplasia 2followed by Dr Escobar of GI 3normal esophagogastroduodenoscopy at [facility] 09/26/[address] Escobar 4UGI 06/27/09-small hiatal hernia, mild GE reflux to lower esophagus 5drug contract with Dr Morales 06/2010- lorazepam 1 mg, 40 tabs/month 6Seeing Dr Maxine Morales - states she has been dx'd as bipolar 7misuse of medication(klonopin)-see 08/26/09 note and addendum, also substance abuse 8no longer in therapy-missed appts. not seeing Dr riddle, saw 1-2 times only and d/c from practice 91st appt with Dr riddle of psychiatry 06/15/09 10in counceling at [facility] in [place] since 05/26, seeing Martin ? Scmidt (pt not positive of last name) 11problems with and keeping him compliant with meds after emergency CABG 12situational,problems with teenage son since approx 11/24 13MRI 10/08/12 C2-3L sided facet arthrosis, C3-4 broad central disc protrusion indenting thecal sac,,c4-5 minimal r foraminal narrowing, C5-6 R>L uncovertebrat spurring,mild L central canal narrowing, minimal R and at least moderate L foraminal narrowing (degraded by motion artifact), C6-7spondylotic ridge with central canal narrowing, mild R, and possible severe L foraminal narrowing 14based on 11/17/15 lipid- ascvd risk 6.6% for nonsmoker, 11% if smoking- she is smoking alot of pot,so I consider her a smoker,she declines starting a statin presently 15liver biopsy 02/28/15 showing mild steatosis, no significant fibrosis 16being followed by Let[facility] of GI, hepatitis studies neg 01/[address] Villa of oncology 18pt seeing Dr Elizabeth at [facility], pt states receiving rituxan every 2 months for next 2 years for maintainance chemo 19full remission 08/2010 20L groin lymph nodes 11/29/09 21pulse dropped to 38 12/12/09 when pt was having cardiac echo 22MRI 09/02/11-no metastatic disease, small L foraminal protrusion L3-4 without nerve root compression, and posterior annular tear at L4-5 without significant stenosis. 23seeing Dr Lee of [facility], has narcotic contract with him 07/2010-oxycodone 15 mg tid 24d/c from [facility]-injections weren't helping 25seeing Dr Cook at [facility], [phone] 26ls mri 08/27/07- L5-S1 marked disc space narrowing, R central disc protrusion abutting R S1 ner ve root sleeve, L4-L5 disc space narrowing, 5 cm hyperintense structure and to R kidney likely reflecting distended GB, u/s recomended 27L3-4 OR L4-5 PER PATIENT, 2000, DR ROBLES. PT SEEN AT [facility] 03/23 289/04/2017 - Multiple concerns, pt being tapered off while awaiting appt with Pain Management. 29Dx chronic pain, narc agreement signed 06/07/17 30narcotics resumed by [facility]- on MS contin 30 mg po bid 31pt had + u-tox at [facility] for buprenorphine(suboxone) noted on 11/01/2010 visit, being tapered off opiods -contract with Dr Lee of [facility] for oxycodone 15 mg tid Social History Social History Type Response Smoking Status Current every day sm oker; Tobacco user in household: No; Type: Cigarettes entered on: 06/12/16 Sex Sex Representation Female (finding) Implantable Device List Procedure Provider Procedure Date Device Type Site Myringotomy Tubes Vanessa Jenkins MD 03/21/21 Unknow n Eye Left Device Identifier Serial Number Lot or Batch Number Manufacturing Date Expiration Date Distinct Identification Code MRI Safety Implantable Status Assigning Authority Unknown Unknown Unknown Unknown 06/10/27 Unknown Unknown Active Unk nown Procedure Provider Procedure Date Device Type Site Myringotomy Tubes Vanessa Jenkins MD 03/21/21 Unknow n Ear Right Device Identifier Serial Number Lot or Batch Number Manufacturing Date Expiration Date Distinct Identification Code MRI Safety Implantable Status Assigning Authority Unknown Unknown Unknown Unknown 08/08/27 Unknown Unknown Active Unk desmondn Patient Care team information Care Team Personnel Name: Pooja Vila RN Position: S RN Member Role: Primary Care Nurse Name: Say Kingsley NP Position: Reference Physician Member Role: PCP Address: [address] [place] [address] Telecom: Care Team Related Persons Name: TIFFANY THRASHER Name: KWABENA MOTA Name: ALEKS, ONE AT THIS TIME Insurance Providers Guarantor name: POOJA NAKUL Health Plan Information #: 1 Payer: MEDICARE B Payer Identifier: NA Member Number: [id number] Group Number: NA Subscriber Identifier: [id number] Relationship to Subscriber: self Coverage Type: NA Coverage Verification Date: NA Telecom: NA Address: Health Plan Information #: 2 Payer: [employer] Payer Identifier: NA Member Number: [id number] Group Number: Subscriber Identifier: [id number] Relationship to Subscriber: self Coverage Type: MEDICAID Coverage Verification Date: NA Telecom: NA Address:
[2025-07-06 13:12] VITALS: BP 162/96; PULSE 88; RESP 18; TEMP 36.2; O2SAT 97; BMI 37.5
--- NOTE | 2025-07-06 13:12 | MHC.PC.OV ---
Vital Signs 07/06/25 13:12 Height 5 ft 4 in Weight 218 lb 6 oz BMI 37.5 BP 162/96 H Blood Pressure Location Lt brachial Position Sitting Respiration 18 Pulse 88 Pulse Source Pulse Oximeter Temp 97.1 F Temp Source Temporal Artery Scan Pulse Oximetry (%) 97 Oxygen Delivery Method Room Air Intake Visit Reasons: Cancer ARMED SECURITY PROFESSIONAL Interline Clerk Required: No Accompanied by: Self / Same As Patient Allergies codeine (CODEINE) Allergy (Mild, Verified 07/06/25 13:43) HIVES acetaminophen (Tylenol-Codeine #3) Allergy (Unknown, Verified 07/06/25 13:43) Unknown cephalexin (Keflex) Allergy (Unknown, Verified 07/06/25 13:43) Vomiting metronidazole (Flagyl) Allergy (Unknown, Verified 07/06/25 13:43) Vomiting Medication List - Last Reconciled 07/06/25 by JSESEE Swift albuterol sulfate 90 mcg/actuation (Ventolin HFA) 2 puffs inhalation QID PRN albuterol sulfate 90 mcg/actuation 2 inhalations inhalation Q6H PRN amlodipine 10 mg PO DAILY budesonide-formoterol 80-4.5 mcg/actuation (Breyna) 2 puffs inhalation BID cetirizine (All Day Allergy (cetirizine)) 10 mg PO DAILY PRN clotrimazole 1% 1 appl topical BID esomeprazole magnesium 40 mg PO DAILY fluticasone propionate 50 mcg/actuation (Allergy Relief (fluticasone)) 2 sprays intranasal DAILY hyoscyamine sulfate ER 0.375 mg PO Q12H lactulose 30 grams PO BID lorazepam 1 mg PO TID PRN metoprolol succinate ER 100 mg PO DAILY ondansetron 4 mg PO Q8H tizanidine 4 mg PO BEDTIME PRN valsartan 160 mg PO DAILY Tobacco use date assessed: 07/06/25 Dental Screening Dental Screen Date: 07/06/25 Did you have a dental visit in the last 12 months?: No Did you have a dental problem in the last 6 months where you did not have access to dental care?: No Was dental information given to patient?: No HPI Cancer ARMED SECURITY PROFESSIONAL HPI Details Previous PCP: Dacia Reyes, Dr. Patric Julian Last visit:09/2024 Last PE: Specialist: [facility], seeing Dr. Patel, couple of lymph node is showing up in the right axilla, she is thinks that it is about 3 now. [facility] pain management. OBGYN: Past medical history: Tubes placed in her ears, was having recurrent ear infection, htn, lymphoma Medications: Family HX: copd Problem: The patient is a 59-year-old female presenting with anxiety and management of multiple chronic conditions. The patient reports a history of anxiety, which has been exacerbated by interactions with previous healthcare providers and the stress of managing her ex-partner's health conditions. She has been prescribed lorazepam 1 mg TID for anxiety management but expresses concerns about the transparency and communication requirements imposed by her current healthcare providers. The patient reports that she is not going fill out the form to allow the practice to get her information until she knows that we are going to prescribe the Ativan 1 mg TID. The patient reports that she is not going back to a lower dose. The patient has a history of follicular lymphoma, initially misdiagnosed, leading to a delay in appropriate treatment. She underwent chemotherapy, which resulted in significant side effects, including prolonged vomiting and weight loss. Currently, she is under the care of a new oncologist and is awaiting further diagnostic imaging to assess the status of her lymphoma. The patient also reports a history of degenerative joint disease and degenerative disc disease, contributing to chronic pain and mobility issues. She has undergone spinal fusion surgery in the past and is scheduled for an upcoming pain management procedure. Hypertension is another concern, with recent changes in her medication regimen to include valsartan and amlodipine. She has been advised to monitor her blood pressure and report any significant changes to her healthcare provider. The patient has a history of chronic obstructive pulmonary disease (COPD) and is under the care of a spindle carver. She uses rescue inhalers and has been advised to continue regular follow-ups with her spindle carver. Additionally, the patient has a history of recurrent ear infections leading to hearing loss, for which she has had tubes placed in her ears. She continues to manage this condition with regular ENT visits and medication. 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 1. Little interest or pleasure in doing things: not at all 2. Feeling down, depressed, or hopeless: not at all 3. Trouble falling or staying asleep, or sleeping too much: nearly every day 4. Feeling tired or having little energy: more than half the days 5. Poor appetite or overeating: nearly every day 6. Feeling bad about yourself - or that you are a failure or have let yourself or your family down: not at all 7. Trouble concentrating on things, such as reading the newspaper or watching television: more than half the days 8. Moving or speaking so slowly that other people could have noticed. Or the opposite - being so fidgety or restless that you have been moving around a lot more than usual: not at all 9. Thoughts that you would be better off or of hurting yourself in some way: not at all Total score: 10 Depression Screening Interpretation: Positive Depression Screening Done: Yes 53940 - PHQ-9 Billing: Yes Source: Developed by Drs. Efren Askew, Barbara Mcgee, Osbaldo Zee and colleagues, with an educational shaista from [employer]. Thrive Questionnaire Date Thrive assessed: 07/06/25 I am a: Patient What is your living situation today?: I have a steady place to live Within the past 12 months, did the food you bought not last and you didn't have the money to get more?: Often true Within the past 12 months, did you worry whether your food would run out before you got money to buy more?: Often true Do you have trouble paying for medicines?: Yes Do you have trouble getting transportation to medical appointments?: No Do you have trouble paying your heating and electricity bill?: Yes Do you have trouble taking care of your child, family member or friend?: I choose not to answer this question Do you have trouble with day-to-day activities such as bathing, preparing meals, shopping, managing finances, etc.?: Yes Are you currently unemployed and looking for a job?: No Are you interested in more education?: No Please select the resources that you would like help with: Housing/Retirement and Care for elder or disabled Currently or been in a relationship where the following occur: I choose not to answer THRIVE Score: 3 AUDIT C Alcohol Use Questionnaire (AUDIT-C) 1. How often do you have a drink containing alcohol?: Never 3. How often do you have six or more drinks on one occasion?: Never Total Score: 0 ROVERTO-7 AMB Questionnaire ROVERTO-7 Date ROVERTO - 7 assessed: 07/06/25 Feeling nervous, anxious, or on edge: 3 = Nearly every day Not being able to stop or control worryin = Nearly every day Worrying too much about different things: 3 = Nearly every day Trouble relaxin = Nearly every day Being so restless that it is hard to sit still: 3 = Nearly every day Becoming easily annoyed or irritable: 2 = More than half the days Feeling afraid as if something awful might happen: 3 = Nearly every day Total ROVERTO-7 score (0-4 normal; 5-9 mild; 10-14 moderate; 15-21 severe): 20 Source: Developed by Drs. Efren Askew, Barbara Mcgee, Osbaldo Zee and colleagues, with an educational shaista from [employer]. ROVERTO-7 Assessment Billing ROVERTO-7 Assessment Tool: ROVERTO-7 Assessment 07110 Review of Systems Const Denies headache(s) Eyes Denies loss of vision ENT Denies vertigo, Denies dizziness, Denies headache(s) and Denies sore throat Card Denies chest pain, Denies leg edema and Denies lightheadedness Resp Denies cough, Denies hemoptysis and Denies wheezing GI Denies abdominal pain, Denies melena, Denies constipation, Denies diarrhea and Denies vomiting Denies urinary frequency, Denies dysuria and Denies urinary urgency Musc Reports back pain, Reports arthralgias (multiple), Denies joint swelling, Denies numbness and Denies tingling Neuro Denies Abnormal speech present, Denies behavioral changes, Denies vertigo, Denies dizziness, Denies headache(s), Denies loss of vision, Denies memory loss, Denies numbness and Denies tingling Psych Reports anxiety, Denies behavioral changes, Denies depression, Denies memory loss and Denies panic attacks Shukri/Lymph Denies easy bleeding and Denies easy bruising Aller/Immun Denies wheezing Physical exam (Primary Care) Vital Signs: Last Vital Signs Temp 97.1 F 07/06/25 13:12 Pulse 88 07/06/25 13:12 Resp 18 07/06/25 13:12 BP 162/96 H 07/06/25 13:12 Pulse Ox 97 07/06/25 13:12 Oxygen Delivery Method Room Air 07/06/25 13:12 BMI result Body Mass Index 37.5 Tobacco/Smoking Status: Tobacco use Status Tobacco use date assessed 07/06/25 07/06/25 13:32 Patient Tobacco Use Status Former Tobacco user 07/06/25 13:32 Tobacco use type Cigarette 07/06/25 13:32 e-Cigarette/Vaping Use Currently Using 07/06/25 13:32 PHQ-9: PHQ-9 Score PHQ-9: Total score 10 07/07/25 13:08 Depression Screening Interpretation: Positive Thrive Assessment: Date of Thrive Assessment Date Thrive assessed 07/06/25 07/06/25 13:32 Currently or been in a relationship where the following occur: I choose not to answer Const General: healthy appearing, no acute distress, alert and awake Nutritional Appearance: well nourished Orientation/consciousness: oriented to person, oriented to place and oriented to time [facility] Ears: TM abnormal with myringotomy tube present bilateral General nose exam: Normal nasal mucous membranes and turbinates present Eyes Conjunctivae: conjunctivae normal Sclerae: sclerae normal Pupils: Equal, round and reactive pupils present Neck Neck: Yes no lymphadenopathy and Yes no JVD Thyroid: Thyroid normal Carotids: no bruits Resp Effort & Inspection: normal respiratory effort and not tachypneic Auscultation: no crackles, no rales, no rhonchi and no wheezes Cardio Rate: regular rate Rhythm: regular rhythm Heart sounds: no murmurs and normal S1 and S2 GI Palpation (GI): Soft to palpation, nontender, no hepatomegaly and no splenomegaly Auscultation: normal bowel sounds Back/Spine/Pelvis Thoracic/Lumbar Spine: lumbar spinal tenderness Skin General skin exam: no rashes or lesions noted and dry skin Neuro General: oriented to person, oriented to place and oriented to time Cranial nerves: Yes Equal, round and reactive pupils present Speech: No Abnormal speech present Gait exam (Neuro): Normal gait present Motor exam (neuro): no tremor noted Extrem Right upper extremity: full ROM Left upper extremity: full ROM Right lower extremity: full ROM; no edema Left lower extremity: full ROM; no edema Psych Mental Status: mental status grossly normal Speech and movement: Normal speech and movement present Affect: normal affect Attitude: cooperative Thought process: Normal thought process present Coding Level of Care Code New Pt Level 4 (66574) Diagnoses Hypertension, unspecified type I10 Hypertension type: unspecified Anxiety F41.9 Vertebrogenic low back pain M54.51 Additional Codes ROVERTO-7 Assessment Billing - ROVERTO-7 Assessment Tool: ROVERTO-7 Assessment 48165 ([id number]) PHQ-9 - 10552 - PHQ-9 Billing: Yes ([id number]) Time Spent (min) 43 Assessment & Plan Assessment & Plan (1) Hypertension: Code(s): I10 - Essential (primary) hypertension Category: Medical Qualifiers: Hypertension type: unspecified Qualified Code(s): I10 - Essential (primary) hypertension Plan: Patient blood pressure was elevated at 162/96. She reports that she is under a lot of stress and that is was driving her blood pressure. She reports that she had a recent change to her medication, she was started on valsartan 160 mg daily with plans to increase if blood pressure continues to be elevated. The patient is also on metoprolol succinate ER 100 mg daily, amlodipine 10 mg daily. She is currently not seeing a inside wireman and would like to be referred. Reinforced low-sodium diet. Referral placed (2) Anxiety: Code(s): F41.9 - Anxiety disorder, unspecified Category: Medical Plan: The patient reports increased anxiety due to caregiver stress. She is currently seeing a adjunct psychology instructor at [facility]. Currently the patient is looking to switch or the practice is planning on not continuing seeing the patient. This is unclear, according to the patient her med provider is asking to have transparency to be able to see her records from other providers. The patient reports that she will not consent to this and this is none of his business (3) Vertebrogenic low back pain: Code(s): M54.51 - Vertebrogenic low back pain Category: Medical Plan: Lumbar spine MRI from 2020 shows endplate edema and Modic changes at L5-S1. [facility] pain management ordered follow MRI to further assess the patient back with plans for future procedure. Plan The patient will continue with her current anxiety management plan, including the use of lorazepam, while addressing concerns about communication with her healthcare providers. Further evaluation and management of her follicular lymphoma will be pursued with her oncologist, including upcoming diagnostic imaging to assess disease status. For her degenerative joint and disc disease, the patient is scheduled for a pain management procedure and will continue to monitor her symptoms. Hypertension management will involve continued monitoring of blood pressure and medication adjustments as needed. The patient will maintain regular follow-ups with her spindle carver for COPD management and continue using prescribed inhalers. She will also continue ENT follow-ups for her ear condition and manage symptoms with medication as needed. Patient was informed and verbally consented to the use of an ambient scribe for clinic note documentation during this visit. Orders: Orders UA CC w/rflx Micro + Cult 07/06/25 C82.90 - Follicular lymphoma, unspecified, unspecified site, C85.90 - Non-Hodgkin lymphoma, unspecified, unspecified site, F41.9 - Anxiety disorder, unspecified, I10 - Essential (primary) hypertension, M54.51 - Vertebrogenic low back pain Complete Blood Count Auto Diff 07/06/25 C82.90 - Follicular lymphoma, unspecified, unspecified site, C85.90 - Non-Hodgkin lymphoma, unspecified, unspecified site, F41.9 - Anxiety disorder, unspecified, I10 - Essential (primary) hypertension, M54.51 - Vertebrogenic low back pain Comprehensive [place]. Panel Fast 07/06/25 C82.90 - Follicular lymphoma, unspecified, unspecified site, C85.90 - Non-Hodgkin lymphoma, unspecified, unspecified site, F41.9 - Anxiety disorder, unspecified, I10 - Essential (primary) hypertension, M54.51 - Vertebrogenic low back pain Lipid Panel 07/06/25 C82.90 - Follicular lymphoma, unspecified, unspecified site, C85.90 - Non-Hodgkin lymphoma, unspecified, unspecified site, F41.9 - Anxiety disorder, unspecified, I10 - Essential (primary) hypertension, M54.51 - Vertebrogenic low back pain TSH reflex Free T4 07/06/25 C82.90 - Follicular lymphoma, unspecified, unspecified site, C85.90 - Non-Hodgkin lymphoma, unspecified, unspecified site, F41.9 - Anxiety disorder, unspecified, I10 - Essential (primary) hypertension, M54.51 - Vertebrogenic low back pain Vitamin D 25-OH Total 07/06/25 C82.90 - Follicular lymphoma, unspecified, unspecified site, C85.90 - Non-Hodgkin lymphoma, unspecified, unspecified site, F41.9 - Anxiety disorder, unspecified, I10 - Essential (primary) hypertension, M54.51 - Vertebrogenic low back pain
--- OUTSIDE RECORDS SUMMARY | 2025-07-06 14:09 | XMS_ITS | Clinical Summary ---
Author Organization [facility] [address] [facility] Address [address] [place] [address] Phone Care Team Providers Care Weather Stripper Name Role Phone Patric Zayas DO Primary Care Provider [phone] Allergies Active Allergy Reactions Criticality Noted Date [...] each nostril 1 (one) time each day. 01/27/20 20 Active clotrimazole (LOTRIMIN) 1 % cream APPLY A THIN LAYER TO AFFECTED AREA BENEATH BREASTS TWICE A DAY FOR 2 WEEKS 01/27/20 20 Active cetirizine (ZyrTEC) 10 mg tablet Take 1 tablet (10 mg total) by mouth 1 (one) time each day. 07/23/20 19 Active amLODIPine (NORVASC) 10 mg tablet Take 1 tablet (10 mg total) by mouth 1 (one) time each day. 07/23/20 Active lisinopril (PRINIVIL,ZESTRIL) 40 mg tablet Take 1 tablet (40 mg total) by mouth 1 (one) time each day. 07/23/20 Active metoprolol succinate (TOPROL-XL) 100 mg 24 hr tablet Take 1 tablet (100 mg total) by mouth 1 (one) time each day. Occasional BID for tachycardia 07/23/20 Active albuterol HFA (Ventolin HFA) 90 mcg/actuation inhaler Inhale 1-2 Puffs into the lungs every 6 hours as needed for Wheezing or Shortness of Breath. 04/14/20 Active esomeprazole (NexIUM) [address] capsule Take 1 Cap by mouth 2 times daily. 04/14/20 Active LORazepam (ATIVAN) 1 mg tablet 3 (three) times a day. 10/13/20 Active NITROGLYCERIN ORAL Take by mouth. Prn Active ondansetron (ZOFRAN) 4 mg tablet Take 1 tablet (4 mg total) by mouth. Active lidocaine (LIDODERM) 5 % patch APPLY 1 PATCH TOPICALLY TO THE SKIN DAILY. MAY WEAR UP TO 12 HOURS 09/29/20 Active ipratropium-albute roL (DUONEB) 0.5-2.5 mg/3 mL nebulizer solution Inhale 3 mL by mouth. 05/13/20 Active Breyna 80-4.5 mcg/actuation inhaler INHALE 2 PUFFS BY MOUTH TWICE DAILY J 45.909 09/14/20 Active nebulizer and compressor (Comp-Air Nebulizer Compressor) device See Instructions, # 1 each, Maintenance, Use PRN with nebulized mdiations, 02/28/23 13:01:00 EDT, Supply, 160.58, cm, 12/17/22 10:04:00 EST, Height, 103, kg, 03/21/21 13:54:00 EDT, Dry Weight 02/29/20 Active hyoscyamine (Levbid) 0.375 mg 12 hr tablet Take 1 tablet (0.375 mg total) by mouth every 12 (twelve) hours if needed for cramping. Do not crush or chew. 60 tablet 12 10/07/20 24 025 Active predniSONE (DELTASONE) 5 mg tablet Take 1 tablet (5 mg total) by mouth 1 (one) time each day. Active ondansetron ODT (ZOFRAN-ODT) 4 mg disintegrating tabletIndications: Nausea DISSOLVE 1 TABLET(4 MG) ON THE TONGUE EVERY 8 HOURS NEEDED FOR NAUSEA 20 tablet 2 05/24/20 25 Active bisacodyL (DULCOLAX) 5 mg EC tablet Take 2 tablets by mouth right before beginning bowel prep. See instructions provided by the office 2 tablet 05/26/20 25 Active polyethylene glycol (Golytely) 236-22.74-6.74 -5.86 gram solution Take 4L by mouth once for one dose. May substitue any PEG. Starting at 2PM the day before your procedure drink 1 8oz glasses at your own pace until you complete half of the gallon. Finish 2nd half of the gallon at 8PM. 4000 mL 05/26/20 25 Active lactulose (CHRONULAC) solutionIndication s:Constipation by delayed colonic transit TAKE 30 ML BY MOUTH TWICE DAILY 5552 mL 1 05/31/20 25 Active Active Problems Problem Noted Date Diagnosed [...] (09/18/2024): W/ agoraphobia. Arthritis 09/24/2017 Bipolar disorder ([facility] V24, [facility] V28) 05/2017 HTN (hypertension) 09/24/2017 Encounters Date Type Department Care Team Description 06/14/2025 Telephone Gastroenterology - [address] [place] [address] [phone] Benigno Escobar MD 06/14/2025 Telephone Gastroenterology - [address] [place] [phone] Benigno Escobar MD Advice Only; special procedure 05/11/2025 Telephone Gastroenterology - [address] [facility] [address] [phone] Benigno Escobar MD from Last 3 Months Immunizations Name Administration [...] syndrome) D X:IBS (irritable bowel syndrome) Lymphoma ([facility] V24, [facility] V28) DX:Lymphoma ([facility]) Social History Tobacco Use Types Packs/Day [...] Care Team (Late st Contact Info) Description 09/02/2025 1:30 PM EDT Appointment [facility] [address] [place] [phone] Benigno Escobar MD [address] [address] Health Maintenance Due Date Last Done Comments [...] LAB CHEMISTRY METHOD 11/12/2024 5:09 PM EST [facility] Potassium 3.7 3.5 - 5.5 mmol/L LAB CHEMISTRY METHOD 11/12/2024 5:09 PM [facility] Chloride 112(H) 96 - 110 mmol/L LAB CHEMISTRY METHOD 11/12/2024 5:09 PM [facility] CO2 27 21 - 32 mmol/L LAB CHEMISTRY METHOD 11/12/2024 5:09 PM [facility] Anion Gap 3 3 - 11 LAB CHEMISTRY METHOD 11/12/2024 5:09 PM [facility] Glucose 104(H) 70 - 100 mg/dL LAB CHEMISTRY METHOD 11/12/2024 5:09 PM [facility] BUN 11 5 - 25 mg/dL LAB CHEMISTRY METHOD 11/12/2024 5:09 PM [facility] Creatinine 0.84 0.50 - 1.30 mg/dL LAB CHEMISTRY METHOD 11/12/2024 5:09 PM [facility] eGFR 80 >=60 mL/min/1. 73m2 LAB CHEMISTRY METHOD 11/12/2024 5:09 PM [facility] Comment: For non-binary individuals or unknown sex, the equation for female sex is used to calculate the estimated glomerular filtration rate (eGFR). Calculation based on the Chronic Kidney Disease Epidemiology Collaboration (CKD-EPI) equation refit without adjustment for race. BUN/Creatinine Ratio 13.1 LAB CHEMISTRY METHOD 11/12/2024 5:09 PM [facility] Calcium 9.2 8.5 - 10.5 mg/dL LAB CHEMISTRY METHOD 11/12/2024 5:09 PM [facility] AST (SGOT) 13 10 - 42 unit/L LAB CHEMISTRY METHOD 11/12/2024 5:09 PM [facility] ALT (SGPT) 22 10 - 60 unit/L LAB CHEMISTRY METHOD 11/12/2024 5:09 PM [facility] Alkaline Phosphatase 63 42 - 121 unit/L LAB CHEMISTRY METHOD 11/12/2024 5:09 PM [facility] Total Protein 6.5 6.0 - 8.0 g/dL LAB CHEMISTRY METHOD 11/12/2024 5:09 PM EST [facility] Albumin 3.9 3.2 - 5.0 g/dL LAB CHEMISTRY METHOD 11/12/2024 5:09 PM EST [facility] Total Bilirubin 0.5 0.0 - 1.4 mg/dL LAB CHEMISTRY METHOD 11/12/2024 5:09 PM EST [facility] Blood Blood sample taken from central line / Unknown Existing Catheter / Unknown 11/12/2024 3:18 PM EST 11/12/2024 4:38 PM EST Paul Mir MD LAB BLOOD ORDERABLES Final R esult [facility] [address] [place] [address], * Hepatitis C Screening (07/23/2019) Pathologist [facility] Hepatitis C Screening abstracted Historical Provider HEALTH MAINTENANCE Final Result * Lipid panel (12/11/2018) Pathologist [facility] LDL/HDL Ratio 0 Comment:abstracted, no inter pretation Triglycerides 0 mg/dL Comment:abstracted, no inter pretation Cholesterol 0 mg/dL Comment:abstracted, no inter pretation HDL 0 mg/dL Comment:abstracted, no inter pretation LDL Cholesterol 0 mg/dL Comment:abstracted, no inter pretation Blood Venous blood specimen / Unknown Historical Provider LAB BLOOD ORDERABLES Theodora l Result from Last 3 Months or Most Recently Relevant to Health Maintenance Insurance [address] [place] [address] MEDICARE MEDICAID - [place] Care Teams Weather Stripper Relationship Specialty Start Date End Date Patric Zayas DO [address] [place] [phone] PCP - General Internal Medicine 07/21/21
--- OUTSIDE RECORDS SUMMARY | 2025-07-06 14:09 | XMS_ITS | Clinical Summary ---
Author Organization [facility] Address [address] [place] [address] Care Team Providers Care Alteration Worker Name Role Phone Patric Zayas MD Primary Care Provider [phone] Allergies Active Allergy Reactions Criticality Noted Date [...] age to complete this topic Care Teams Alteration Worker Relationship Specialty Start Date End Date Patric Zayas MD [address] [place] [address], [place] [address] PCP - General Internal Medicine 07/21/21
== END 2025-07-06 14:49 | disposition home or self-care (01) ==
LOC: HO.HMCH 13:02
DX: I10 Essential (primary) hypertension (principal); F41.9 Anxiety disorder, unspecified; M54.51 Vertebrogenic low back pain

== ENCOUNTER → 2025-07-06 13:01 | Outpatient (BNVA) | payer MEDICARE, MEDICAID, SELFPAY | DX: I10 Essential (primary) hypertension (principal); F41.9 Anxiety disorder, unspecified; M54.51 Vertebrogenic low back pain | CPT/HCPCS: 96127; 99202 ==

== ENCOUNTER 2025-10-06 07:57 | Outpatient (REF) | payer MEDICARE, MEDICAID, SELFPAY ==
--- NOTE | ~2025-10-06 | CT_ITS ---
EXAMINATION: CT CHEST WITH CONTRAST CLINICAL INFORMATION: Follow-up follicular lymphoma. COMPARISON: May 29, 2025. TECHNIQUE: Multidetector volumetric CT imaging of the chest was obtained after the administration of 85 mL of Omnipaque 350 intravenous contrast without immediate adverse reactions. Axial MIP volume rendering provided. Sagittal and coronal reformatted images were obtained. This CT examination was performed using dose optimization techniques as appropriate, variously including the following: *Automated exposure control *Adjustment of mA and/or kV according to patient size (this includes techniques or standardized protocols for targeted exams where dose is matched to indication/reason for exam; i.e. extremities or head) *Use of iterative reconstruction technique DLP: 274.3 mGy-cm FINDINGS: PAVING STONE INSTALLER: Patient's large body habitus. Satisfactory inspiration. Both the upper extremities at the size of the body LUNGS: Bilateral, patchy pulmonary groundglass. Confluent attenuation, lingula. No gross pulmonary nodules. No bronchiectasis. No honeycombing. Respiratory airways is patent. MEDIASTINUM: Prominent, less than 11 mm mediastinal lymph nodes. No aneurysm or dissection, thoracic aorta. 3.7 cm ectasia, ascending thoracic aorta. No pneumomediastinum. No hemomediastinum. No hemopericardium. Heart is not enlarged. Calcified plaques in the mitral valve. Calcified plaques in the origin of the brachiocephalic trunk. Port-A-Cath tip ends in the SVC. No pericardial effusion. PLEURA: No pleural effusion. No pneumothorax. No hemothorax. No calcified pleural plaques. AXILLA: No lymphadenopathy. OSSEOUS STRUCTURES: Multilevel spondylosis without acute fracture or listhesis in the axial skeleton. No lytic or blastic lesions. CT/CT abdomen pelvis w IV con IMPRESSION: Concerning multifocal pneumonia in the correct clinical settings. Persistent right-sided stable 11 mm mediastinal lymph nodes. Calcification, mitral valve. Resolved pericardial effusion. Fleischner guidelines were followed. EXAMINATION: CT ABDOMEN AND PELVIS WITH CONTRAST CLINICAL INFORMATION: Follow-up follicular lymphoma. COMPARISON: None available. TECHNIQUE: Multidetector volumetric images were obtained from the superior aspect of the liver through the pubic symphysis following administration 85 mL of Omnipaque 350 intravenous contrast. Sagittal and coronal reformatted images were obtained on the technologist's workstation. Oral contrast: Yes. [address] examination was performed using dose optimization techniques as appropriate, variously including the following: *Automated exposure control *Adjustment of mA and/or kV according to patient size (this includes techniques or standardized protocols for targeted exams where dose is matched to indication/reason for exam; i.e. extremities or head) *Use of iterative reconstruction technique DLP: 788.5 mGy-cm FINDINGS: LIVER, GALLBLADDER, AND BILIARY TREE: Liver measures 21 cm. No solid or cystic mass. Main portal veins, hepatic veins and intrahepatic portion of the IVC are patent. Multiple low density intraluminal abnormalities in the nondistended gallbladder. No pericholecystic fluid collection or gallbladder wall thickening. No intrahepatic or extrahepatic biliary ductal dilatation. PANCREAS: No solid or cystic mass. No main pancreatic ductal dilatation. No peripancreatic fluid collection. SPLEEN: 11 cm. No solid or cystic lesion. ADRENAL GLANDS: No nodular lesions. KIDNEYS AND URETERS: No hydronephrosis. No gross nephrolithiasis. Subcentimeter cystic lesion, upper pole left kidney. Normal enhancement pattern of the renal parenchyma/renal cortex. No dilatation of the ureters. BLADDER: Fluid-filled. GASTROINTESTINAL TRACT: Stool within the nondistended large intestine. No intestinal obstruction pattern. No intestinal wall thickening. No pneumatosis intestinalis. Appendix is normal. No ascites. No pneumoperitoneum. No fluid collections, peritoneal cavity. ABDOMINAL WALL: Small fat-containing umbilical hernia fat-containing inguinal hernias. LYMPH NODES: No specific prominent less than 10 mm lymph nodes in the retroperitoneum. VASCULAR: Mixed plaques throughout the abdominal aorta wall and iliac arteries without aneurysm or dissection. PELVIC VISCERA: No gross masses. OSSEOUS STRUCTURES: Multilevel spondylosis resulting in grade 1 anterolisthesis at L4-5. No acute fracture. Degenerative changes in the symphysis pubis and sacroiliac joints. IMPRESSION: Hepatomegaly. Nonspecific prominent less than 11 mm retroperitoneal lymph nodes. Cholelithiasis likely cholesterol. Atherosclerosis disease. Multilevel spondylosis resulting in grade 1 anterolisthesis L4-5. Fleischner guidelines were followed. Electronically signed by: Lul Juárez MD 10/06/2025 09:37 AM EST
[2025-10-06] MEDS: iohexoL 350 MG/ML 100 ML INFUS..BTL 85 ML IV (08:46)
[2025-10-06 14:44] LABS: Creatinine POC 0.7 mg/dL (0.5-1.4); GFR POC > 60
--- OUTSIDE RECORDS SUMMARY | 2025-10-06 15:28 | XMS_ITS | Data Portability ---
Author Organization [place] - [facility], Allergy Address [address] [place] [phone] Care Team Providers Care General Lithographic Worker Name Role Phone VIANEY PATEL Primary Care Provider [phone] Assessment Encounter Date Assessment Date Assessment LastModified by Organization Details LastModified Time 02/26/2025 02/26/2025 T tubes are pres ent bilaterally. No sign of infection. Recommend tube check in 6 months. Patient describes tinnitus and hyperacusis. These may represent sensory overload from her increased stress and migraine. Audiometric testing was obtained confirming bilateral sensorineural hearing loss. Hearing aid evaluation through [facility] provider is recommended. [email or web address] Not available 02/26/2025 10:48:28 09/03/2025 09/03/2025 T tubes are pres ent bilaterally. No sign of infection. Recommend tube check in 6 months with AIDE. Patient describes sharp left otalgia. These may represent TMJ muscle spasm overload from her increased stress and migraine. Bilateral ear tube evaluation was performed. Both tubes are open, with no signs of infection or significant drainage. Wax was removed from the RIGHT ear. The sharp pain experienced by the patient may be attributed to temporomandibular joint (TMJ) dysfunction, potentially exacerbated by stress. Routine follow-up for ear tube evaluation is recommended in six months with the physician mental health assistant. The patient was counseled on the absence of infection and advised to continue monitoring symptoms. Support and encouragement were provided regarding her ongoing cancer treatment and family challenges. Procedure Documentation: Bilateral ear tube evaluation Wax removal from left ear [email or web address] Not available 09/03/2025 09:19:26 Plan of Treatment Reminders Order Date Submit Date Provider Last Modified By Organization Details Last Modified Time Details Appointments Establish ed 15 2025 09:00A Cosme HAGEN PA-C Not available Not available Not available Lab None recorded. Referral None recorded. Procedures None recorded. Surgeries None recorded. Imaging None recorded. Medication Orders None recorded. Patient TargetsNo targets recorded. Patient Instructions Encounter Date Encounter Id Patient Instructions Last Modified By Organization Details Last Modified Time 09/03/2025 [id number] Return for routine ear tube evaluation in six months. Monitor symptoms and report any changes or worsening. Continue to protect ears from moisture using cotton balls. [email or web address] Not available 09/03/2025 09:17:15 Please note: Parts of this encounter note have been generated by AI based on audio conversation. Patient consent was required prior to utilizing this technology. Content review was required prior to finalizing the note. [email or web address] Not available 09/03/2025 09:17:15 Reason for Referral None Reported. Results Created Date Observation Date Name Description Value Unit Range Abnormal Flag Note LastModifiedBy Organization Detail LastModifiedTime 03/01/20 25 audio gram No observ ation record ed. BARCODE Not Available 2024 09:21:06 Result Notes None recorded. Problems Name Problem SNOMED Code Status Onset Date Resolution Date Notes Provider Name and Address Organization Details Recorded Time Abnormal auditory perceptio n 55527113 Active 2016 Other abnormal auditory perceptio ns, bilateral ; Note: Date Diagnosed : 08/05/2017 2:19 PM (H93.293) Not Available Counts include 234 beds at the [facility] 4 03:08:52 Tobacco user 726366742 Active 2016 Tobacco use; Note: Date Diagnosed : 08/05/2017 2:27 PM (Z72.0) Not Available Counts include 234 beds at the [facility] 4 03:08:50 Bilateral disorder of Eustachia n tubes 33062651679 24139 Active 2016 Other specified disorders of Eustachia n tube, bilateral ; Note: Date Diagnosed : 08/05/2017 2:14 PM (H69.83) Not Available Counts include 234 beds at the [facility] 4 03:08:51 Acute serous otitis media of bilateral ears 18308407074 30448 Active 2019 Acute serous otitis media, bilateral ; Note: Date Diagnosed : 01/21/2020 2:45 PM (H65.03) Not Available Counts include 234 beds at the [facility] 4 03:08:51 Mixed conductiv e and sensorine ural hearing loss, bilateral 432582141 Active 2020 Mixed conductiv e and sensorine ural hearing loss, bilateral ; Note: Date Diagnosed : 03/06/2021 11:54 AM (H90.6) Not Available [facility] 4 03:08:51 Sensorine ural hearing loss of bilateral ears 586401154 Active 2020 Sensorine ural hearing loss, bilateral ; Note: Date Diagnosed : 04/18/2021 10:06 AM (H90.3) SHAQUILLE VILLAREAL MD [address] [place] [address], [place], [address] , [facility] - [facility] 5 12:38:36 Dysfuncti on of eustachia n tube 63882337 Active 2020 Eustachia n tube dysfuncti on; Location: bilateral CMS Risk: low risk CMS Treatment : establish ed problem (to examiner) : stable or improved Condition : stable No te: Date Diagnosed : 08/22/2014 12:47 PM (381.81) Not Available Counts include 234 beds at the [facility] 4 03:08:52 Otorrhea of bilateral ears 08461061459 17940 Active 2021 Otorrhea, bilateral ; Note: Date Diagnosed : 2 6:06 PM (H92.13) Not Available [facility] 4 03:08:52 Allergic rhinitis 04008018 Active 2021 Other allergic rhinitis; Note: Date Diagnosed : 2 6:06 PM (J30.89) Not Available [facility] 4 03:08:51 Dysphonia 00470655 Active 2022 Hoarsenes s; Note: Date Diagnosed : 05/31/2023 5:12 PM (R49.0) Not Available [facility] 4 03:08:51 Otorrhea of right ear 77722615396 83831 Active 2022 Otorrhea, right ear; Note: Date Diagnosed : 3 12:13 PM (H92.11) Not Available [facility] 4 03:08:52 Cervical lymphaden opathy 546898333 Active 2024 SHAQUILLE VILLAREAL MD [address], [place], [address] , [place] - [facility] 14:24:49 Bilateral tinnitus 11825856365 02 Active 2024 SHAQUILLE VILLAREAL MD [address],[place] [facility] [place], [place], [address] , [place] - [facility] 5 12:38:36 Hyperacus is 23884670 Active 2024 SHAQUILLE VILLAREAL MD [address],[place] [facility] [place], [place], [address] , [place] - [facility] 09:55:10 Hyperacus is 99516269 Active 2024 SHAQUILLE VILLAREAL MD [address] [place] [address], [place], [address] , [place] - [facility] 12:38:36 Impacted cerumen in right ear 47999328658 57050 Active 2024 SHAQUILLE VILLAREAL MD [address] [place] [address], [place], [place], [address] , [place] - [facility] 09:16:12 Otalgia of left ear 6891140188 Active 2024 SHAQUILLE VILLAREAL MD [address] [place] [address], [place], [address] , [place] [facility] 09:18:14 Problem Notes None recorded. Procedures Surgical History Date Name Laterality Status Provider Name and Address Organization Details Recorded Time 09/03/20 25 Wax_DP completed SHAQUILLE VILLAREAL MD [address] [place] [facility] [place], [place], [address], [place] - [facility] 09/03/2025 09:16:03 02/27/20 25 Comp Audio with Tymps - 00224 & 53240 completed KATHLEEN COLON [address], [place], [address], [place] - [facility] 02/26/2025 10:29:38 section completed Do Berg [facility] 02/26/2025 09:43:00 Myringotomy Tube Placement completed Do Berg [place] [facility] 02/26/2025 09:43:07 discectomy of spine completed Do Berg [place] [facility] 02/26/2025 09:43:19 ligation of fallopian tube completed Do Berg [place] [facility] 02/26/2025 09:43:25 tooth extraction completed Do Berg [facility] 02/26/2025 09:43:47 Imaging Results None recorded. Procedure Notes None recorded. Medical Equipment None Reported. Allergies Allergen ID Allergen Name Allergen Category Reaction Reaction Severity Criticality Documentation Date Start Date Code Code System Note Provider Name and Address Organization Details Recorded Time 769939 Tylenol with Codeine medicatio n other Not available Not available 03/31/2024 52874 6 RxNorm React ion: Unkno wn; Not Available Counts include 234 beds at the [facility] 01:27:10 Medications Name Sig Start Date Stop Date Status Note LastModified by Organization Details LastModified Time doxycycli ne hyclate 100 mg capsule TAKE 1 CAPSULE BY MOUTH TWICE DAILY FOR 7 DAYS 02/26 completed Not Available Not Available Not Available cetirizin e 10 mg tablet TAKE ONE TABLET BY MOUTH DAILY NEEDED ALLERGY SYMPTOMS . active Not Available Not Available No t Available azithromy joanie 250 mg tablet TAKE DIRECTED ON PACKAGE LABELING 09/03 completed Not Available Not Available Not Available tizanidin e 4 mg tablet TAKE 1 TABLET BY MOUTH AT BEDTIME NEEDED FOR MUSCLE SPASMS active Not Available Not Available No t Available metoprolo l succinate ER 50 mg tablet,ex tended release 24 hr 02/23 completed Medicati on ID: [id number] D uration Value: 90 Brand Name: metoprol [...] 1 TABLET BY MOUTH FOR 3 DAYS 09/03 completed Not Available Not Available Not Available metoprolo l succinate ER 100 mg tablet,ex tended release 24 hr TAKE 1 TABLET BY MOUTH DAILY active Not Available Not Available No t Available prednison e 5 mg tablet 09/03 completed Not Available Not Available Not Available clonazepa m 1 mg tablet 02/23 completed Medicati on ID: [id number] D uration Value: 30 Brand Name: clonazep am Send Method: E-Prescr ibed Sub s Allowed: subs OK Speci al Instruct ion: TAKE 1 TABLET BY MOUTH EVERY DAY AT BEDTIME NEEDED FOR ANXIETY Medicati onGeneri cName: clonazep am Not Available Not Available Not Available hydroxyzi ne pamoate 50 mg capsule 02/23 completed Medicati on ID: [id number] D uration Value: 30 Brand Name: hydroxyz [...] a day 02/26 completed Medicati on ID: [id number] D uration Value: 10 Brand Name: ofloxaci n Send Method: E-Prescr ibed Sub s Allowed: subs [place] Medic ationGen ericName : ofloxaci n Not Available Not Available Not Available hyoscyami ne ER 0.375 mg tablet,ex tended release,1 2 hr active Not Available Not Available Not Available amlodipin e 10 mg tablet TAKE 1 TABLET BY MOUTH DAILY active Not Available Not Available No t Available esomepraz ole magnesium 40 mg capsule,d elayed release TAKE 1 CAPSULE BY MOUTH TWICE DAILY active Not Available Not Available No t Available buspirone 10 mg tablet 02/26 completed Medicati on ID: [id number] B rand Name: buspiron e Send Method: E-Prescr ibed Sub s Allowed: subs [place] Medic ationGen ericName : buspiron e Not Available Not Available Not Available lidocaine 5 % topical patch APPLY 1 PATCH TOPICALL Y TO THE SKIN DAILY. MAY WEAR UP TO 12 HOURS active Not Available Not Available No t Available valsartan 320 mg tablet TAKE 1 TABLET BY MOUTH DAILY active Not Available Not Available No t Available bisacodyl 5 mg tablet,de layed release TAKE 2 TABLETS BY MOUTH RIGHT BEFORE BEGINNIN G BOWEL PREP. SEE INSTRUCT IONS PROVIDED BY THE OFFICE active Not Available Not Available No t Available furosemid e 20 mg tablet TAKE 1 TABLET BY MOUTH DAILY IN THE MORNING active Not Available Not Available No t Available oxycodone 30 mg tablet 02/23 completed Medicati on ID: [id number] D uration Value: 14 Brand Name: oxycodon [...] Not Available Not Available No t Available ondansetr on 4 mg disintegr ating tablet DISSOLVE 1 TABLET ON THE TONGUE EVERY 8 HOURS NEEDED FOR NAUSEA OR VOMITING active Not Available Not Available No t Available fluticaso ne propionat e 50 mcg/actua tion nasal spray,joanna pension USE 1 SPRAY IN EACH NOSTRIL ONCE DAILY active Not Available Not Available No t Available clotrimaz ole 1 % topical cream APPLY TOPICALL Y TO THE AFFECTED AREA TWICE DAILY active Not Available Not Available No t Available dicyclomi ne 10 mg capsule TAKE 1 CAPSULE BY MOUTH FOUR TIMES DAILY NEEDED active Not Available Not Available No t Available naproxen 500 mg tablet TAKE 1 TABLET BY MOUTH TWICE DAILY FOR 14 DAYS 02/26 completed Not Available Not Available Not Available amoxicill in 875 mg-potass ium clavulana te 125 mg tablet TAKE 1 TABLET BY MOUTH TWICE DAILY FOR 5 DAYS 08/31 completed Not Available Not Available Not Available Ventolin HFA 90 mcg/actua tion aerosol inhaler INHALE 2 PUFFS BY MOUTH FOUR TIMES DAILY NEEDED FOR WHEEZING active Not Available Not Available No t Available oxycodone 5 mg tablet TAKE 1 TABLET BY MOUTH EVERY 6 HOURS NEEDED FOR SEVERE PAIN active Not Available Not Available No t Available valsartan 160 mg tablet TAKE 1 TABLET BY MOUTH DAILY active Not Available Not Available No t Available Afrin (oxymetaz oline) 0.05 % nasal spray 2 spray into both nostrils 02/26 completed Medicati on ID: [id number] D uration Value: 3 Prescri bed By Name: KELLY Lane nd Name: Afrin (oxymeta zoline) Send Method: E-Prescr ibed Sub s Allowed: subs [place] [facility] Afrin (oxymeta zoline) Not Available Not Available Not Available azithromy joanie 500 mg tablet TAKE 1 TABLET BY MOUTH DAILY FOR 5 DAYS 08/31 completed Not Available Not Available Not Available Ciprodex 0.3 %-0.1 % ear drops,joanna pension Apply 4 drop into right ear twice a day 02/26 completed Medicati on ID: [id number] D uration Value: 14 Brand Name: Ciprodex Send Method: E-Prescr ibed Sub s Allowed: subs [place] [facility] Ciprodex Not Available Not Available [...] mg tablet 02/23 completed Medicati on ID: [id number] D uration Value: 28 Brand Name: oxycodon e Send Method: E-Prescr ibed Sub s Allowed: subs [place] [facility] : oxycodon e Not Available Not Available Not Available GaviLyte- G 236 gram-22.7 4 gram-6.74 gram-5.86 gram oral solution 09/03 completed Not Available Not Available Not Available Breyna 80 mcg-4.5 mcg/actua tion HFA aerosol inhaler INHALE 2 PUFFS BY MOUTH TWICE DAILY J 45.909 active Not Available Not Available No t Available Vitals Date Recorded Body height Body mass index (BMI) Body weight Provider Name and Address Organization Details Last Updated DateTime 09/03/2025 160.02 cm 39 kg/m2 40701.32 g PRIMITIVO ISAAC [facility] 09/03/2025 09:05:51 Social History None recorded. Functional Status None [...] Diagnosis SNOMED-CT Code Diagnosis ICD10 Code Diagnosis IMO Codes Diagnosis Note [id number] SHAQUILLE VILLAREAL MD [facility] [address] [address] 12/16/2024 14:26:08 12/16/2024 14:57:11 Cervical lymphadenopathy 275659242 R59.0 [id number] SHAQUILLE VILLAREAL MD [facility] [address] [address] 02/26/2025 09:30:04 02/26/2025 10:53:40 Bilateral tinnitus 9524613452 102 H93.13 Hyperacusis 11802958 H93 .233 Sensorineu ral hearing loss of bilateral ears 409682320 H90.3 [id number] KATHLEEN COLON [facility] [address] [address] 02/26/2025 10:29:12 03/01/2025 16:50:52 Sensorineural hearing loss of bilateral ears 315472050 H90.3 Audiologic al evaluation results: Right ear: Mild sloping to severe sensorineu ral hearing loss with good word recognitio n. Left ear: Mild sloping to profound sensorineu ral hearing loss with good word recognitio n. Tympanomet ry: Right Ear:Type B with large volume Left Ear:Type B with large volume [id number] SHAQUILLE VILLAREAL MD [facility] [address] [address] 09/03/2025 09:00:07 09/03/2025 09:23:46 Hyperacusis 79266813 H93.233 Sensorineu ral hearing loss of bilateral ears 074351209 H90.3 Impacted c erumen in right ear 3536485905 613511 H61.21 7846033 Ears were meticulous ly cleaned RIGHT today with fine pics, curettes and/or suction. Patient is encouraged to avoid Q-tips in their ears relative to packing the wax in tighter. They may use the corner of their bath towel to gently clean the nooks and crannies of the external ears as needed. Yearly visits or as needed are recommende d. Otalgia of left ear 1010 036872 H92.02 5675701 Health Concerns Section Related Observation LastModified by Organization Detai ls LastModified Time None Recorded Concern Status LastModified by Organization Details LastModified Time None Recorded Advance Directives Directive None Recorded Payers Insurance Date Sequence Insurance Name Policy Number Policy Sun Covered Member ID Sun Member ID Guarantor Name 08/31/2025 1 [place]IC[place]: [employer] Pooja Ribeiro [id number] Pooja Ribeiro 08/31/2025 2 [place] [facility] Pooja Ribeiro [id number] Pooja Ribeiro Notes Date Note Type Note Provider Name and Address Organization Details Recorded Time 5 text/html ROS as noted in the HPI Submental adenopathy 03/20/21 Gregory MUÑOZ, endoscopic bx - benign, BMT PV 10/11/23 Kathie - right otorrhea rx ciprodex SHAQUILLE VILLAREAL MD [address] [place] [address], [phone], [facility] - [facility] 12/16/2024 14:27:38 5 text/html ROS as noted in the HPI ear pressure12/2024 started new med for IBS, shortly after developed tinnitus and sound sensitivitydecreased use of the med but continues with tinnitusmore stress with information that a cancer will need more treatment was offered hearing aids in past but is reluctant 03/20/21 Gregory MUÑOZ, endoscopic bx - benign, BMT PV 10/11/23 Kathie - right otorrhea rx ciprodex SHAQUILLE VILLAREAL MD [address] [place] [address],[place] [address], [place], [address], [facility] - [facility] 02/26/2025 10:48:41 5 text/html ear pressure 12/2024 started new med for IBS, shortly after developed tinnitus and sound sensitivity decreased use of the med but continues with tinnitus more stress with information that a cancer will need more treatment was offered hearing aids in past but is reluctant 03/20/21 WANDA, Gregory, endoscopic bx - benign, BMT PV 10/11/23 Kathie - right otorrhea rx ciprodex PV 02/26/25 Mariel - tinnitus, hyperacusis, T-tubes stable Pooja Ribeiro is a 59-year-old female who presents for bilateral ear evaluation. She reports constant drainage from her ears, occasionally wet and pussy, accompanied by stabbing pains that occur intermittently. The left ear is predominantly affected, though the right ear is occasionally involved. She has a history of longer-lasting ear tubes placed by Dr. Jenkins, which she reports have been helpful. She denies getting her ears wet and uses cotton balls for protection. 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 She is allergic to chemotherapy and has experienced significant stress due to family circumstances, including her ex-'s end-stage congestive heart failure. SHAQUILLE VILLAREAL MD [address] [place] [address], [phone], [facility] 09/03/2025 09:19:34 OBGyn Episode No OBEpisode recorded.
--- OUTSIDE RECORDS SUMMARY | 2025-10-06 15:28 | XMS_ITS | Continuity of Care Document ---
Author Organization [place] - [facility], [facility] Address [address] [place] [address] Care Team Providers Care Optical Effects Camera Operator Name Role Phone JORGEVIANEY PRINCE Primary Care Provider Assessment Encounter Date Assessment Date Assessment LastModified by Organization Details LastModified Time 09/03/2025 09/03/2025 T tubes are pres ent [...] recommended in six months with the physician assistant import manager. The patient was counseled on the absence [...] Details Appointments Establish ed 15 2025 09:00A M SARAH HAGEN PA-C Not available Not available Not available Lab None recorded. Referral None recorded. Procedures None recorded. Surgeries None recorded. Imaging None recorded. Medication Orders None recorded. Patient TargetsNo targets recorded. Patient Instructions Encounter Date Encounter Id Patient Instructions Last Modified By Organization Details Last Modified Time 09/03/2025 [id number] Return for routine ear tube evaluation in [...] 09/03/2025 09:17:15 Reason for Referral None Reported. Problems Name Problem SNOMED Code Status Onset Date Resolution Date Notes Provider Name and Address Organization Details Recorded Time Abnormal auditory perceptio n 16685803 Active 2016 Other abnormal auditory perceptio ns, bilateral ; Note: Date Diagnosed : 08/05/2017 2:19 PM (H93.293) Not Available [facility] 4 03:08:52 Tobacco user 465435960 Active 2016 Tobacco use; Note: Date Diagnosed : 08/05/2017 2:27 PM (Z72.0) Not Available [facility] 4 03:08:50 Bilateral disorder of Eustachia n tubes 57143722697 11108 Active 2016 Other specified disorders of Eustachia n tube, bilateral ; Note: Date Diagnosed : 08/05/2017 2:14 PM (H69.83) Not Available [facility] 4 03:08:51 Acute serous otitis media of bilateral ears 33617390341 03519 Active 2019 Acute serous otitis media, bilateral ; Note: Date Diagnosed : 01/21/2020 2:45 PM (H65.03) Not Available [facility] 4 03:08:51 Mixed conductiv e and sensorine ural hearing loss, bilateral 801614261 Active 2020 Mixed conductiv e and sensorine ural hearing loss, bilateral ; Note: Date Diagnosed : 03/06/2021 11:54 AM (H90.6) Not Available [facility] 4 03:08:51 Sensorine ural hearing loss of bilateral ears 945237140 Active 2020 Sensorine ural hearing loss, bilateral ; Note: Date Diagnosed : 04/18/2021 10:06 AM (H90.3) SHAQUILLE VILLAREAL MD [address] [place] [address], [place] [place], [phone] , [place] - [facility] 5 12:38:36 Dysfuncti on of eustachia n tube 00510502 Active 2020 Eustachia n tube dysfuncti on; Location: bilateral CMS Risk: low risk CMS Treatment : establish ed problem (to examiner) : stable or improved Condition : stable No te: Date Diagnosed : 08/22/2014 12:47 PM (381.81) Not Available [facility] 4 03:08:52 Otorrhea of bilateral ears 73869994564 92323 Active 2021 Otorrhea, bilateral ; Note: Date Diagnosed : 2 6:06 PM (H92.13) Not Available [facility] 4 03:08:52 Allergic rhinitis 49053840 Active 2021 Other allergic rhinitis; Note: Date Diagnosed : 2 6:06 PM (J30.89) Not Available [facility] 4 03:08:51 Dysphonia 62527554 Active 2022 Hoarsenes s; Note: Date Diagnosed : 05/31/2023 5:12 PM (R49.0) Not Available [facility] 4 03:08:51 Otorrhea of right ear 17094747511 25405 Active 2022 Otorrhea, right ear; Note: Date Diagnosed : 3 12:13 PM (H92.11) Not Available [facility] 4 03:08:52 Cervical lymphaden opathy 907813969 Active 2024 SHAQUILLE VILLAERAL MD [address] [place] [address],[place] [address], [place], [address] , [place] - [facility] 5 14:24:49 Bilateral tinnitus 29653471269 02 Active 2024 SHAQUILLE VILLAREAL MD [address] [place] [address],[place] [address], [place], [address] , [place] - [facility] 5 12:38:36 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 SHAQUILLE VILLAREAL MD [address] [place] [address],[place] [address], [phone] , [place] - [facility] 09:55:10 Hyperacus is 81719717 Active 2024 SHAQUILLE VILLAREAL MD [address] [facility],[place] [address], [place], [address] , [place] - [facility] 12:38:36 Impacted cerumen in right ear 46471962881 61559 Active 2024 SHAQUILLE VILLAREAL MD [address] [facility],[place] [address], [place], [address] , [place] - [facility] 09:16:12 Otalgia of left ear 6562512116 Active 2024 SHAQUILLE VILLAREAL MD [address] [facility],[place] [address], [place], [phone] , [place] - [facility] 09:18:14 Problem Notes None recorded. Procedures Surgical History Date Name Laterality Status Provider Name and Address Organization Details Recorded Time 09/03/20 25 Wax_DP completed SHAQUILLE VILLAREAL MD [address] [facility],[place] [address], [place], [address], [place] - [facility] 09/03/2025 09:16:03 02/27/20 25 Comp Audio with Tymps - 70083 & 38977 completed KATHLEEN COLON [address] [facility],[place] [address], [place], [address], [place] - [facility] 02/26/2025 10:29:38 section completed Do Berg [place] - [facility] 02/26/2025 09:43:00 Myringotomy Tube Placement completed Do Berg [place] - [facility] 02/26/2025 09:43:07 discectomy of spine completed Do Berg [place] - [facility] 02/26/2025 09:43:19 ligation of fallopian tube completed Do Berg [place] - [facility] 02/26/2025 09:43:25 tooth extraction completed Do Berg [place] - [facility] 02/26/2025 09:43:47 Imaging Results None recorded. Procedure Notes None recorded. Medical Equipment None Reported. Allergies Allergen ID Allergen Name Allergen Category Reaction Reaction Severity Criticality Documentation Date Start Date Code Code System Note Provider Name and Address Organization Details Recorded Time 598771 Tylenol with Codeine medicatio n other Not available Not available 03/31/202470520 6 RxNorm React ion: Unkno wn; Not Available [facility] 4 01:27:10 Medications Name Sig Start Date Stop [...] 24 hr 02/23 completed Medicati on ID: [id number] D uration Value: 90 Brand Name: metoprol [...] mg tablet 02/23 completed Medicati on ID: [id number] D uration Value: 30 Brand Name: clonazep am Send Method: E-Prescr ibed Sub s Allowed: subs OK Speci al Instruct ion: TAKE 1 TABLET BY MOUTH EVERY DAY AT BEDTIME NEEDED FOR ANXIETY Medicati onGeneri cName: clonazep am Not Available Not Available Not Available hydroxyzi ne pamoate 50 mg capsule 02/23 completed Medicati on ID: [id number] D uration Value: 30 Brand Name: hydroxyz [...] a day 02/26 completed Medicati on ID: [id number] D uration Value: 10 Brand Name: ofloxaci [...] mg tablet 02/26 completed Medicati on ID: [id number] B rand Name: buspiron e Send Method: [...] mg tablet 02/23 completed Medicati on ID: [id number] D uration Value: 14 Brand Name: oxycodon [...] both nostrils 02/26 completed Medicati on ID: [id number] D uration Value: 3 Prescri bed By [...] a day 02/26 completed Medicati on ID: [id number] D uration Value: 14 Brand Name: Ciprodex [...] mg tablet 02/23 completed Medicati on ID: [id number] D uration Value: 28 Brand Name: oxycodon [...] Updated DateTime 09/03/2025 160.02 cm 39 kg/m2 05193.32 g [facility] 09/03/2025 09:05:51 Social History None recorded. [...] ICD10 Code Diagnosis IMO Codes Diagnosis Note [id number] SHAQUILLE VILLAREAL MD [facility] [address] [place] [address] 09/03/2025 09:00:07 09/03/2025 09:23:46 Hyperacusis 85238994 H93.233 Sensorineu ral hearing loss of bilateral ears 063796737 H90.3 Impacted c erumen in right ear 2143486702 209387 H61.21 1857406 Ears were meticulous ly cleaned RIGHT today [...] recommende d. Otalgia of left ear 1010 087243 H92.02 [id number] Health Concerns Section Related Observation LastModified by Organization Detai ls LastModified Time None Recorded Concern Status LastModified by Organization Details LastModified Time None Recorded Payers Encounter Date Sequence Insurance Name Policy Number Policy Sun Covered Member ID Sun Member ID Guarantor Name 09/03/2025 1 [place]: [employer] Pooja Ribeiro [id number] Pooja Ribeiro 09/03/2025 2 [place] [facility] Pooja Ribeiro [id number] Pooja Ribeiro Notes Date Note Type Note Provider Name and Address Organization Details Recorded Time 09/03/2025 text/html ear pressure 12/2024 started new med for IBS, shortly after developed tinnitus and sound sensitivity decreased use of the med but continues with tinnitus more stress with information that a cancer will need more treatment was offered hearing aids in past but is reluctant 03/20/21 [facility], Gregory, endoscopic bx - benign, BMT PV 10/11/23 Kathie - right otorrhea rx ciprodex PV 02/26/25 [place] - tinnitus, hyperacusis, T-tubes stable oPoja Ribeiro is a 59-year-old female who presents [...] end-stage congestive heart failure. SHAQUILLE VILLAREAL MD [address] [place] [address], [place], [address], [facility] - [facility] 09/03/2025 09:19:34 OBGyn Episode No OBEpisode recorded.
== END 2025-10-06 07:58 | disposition home or self-care (01) ==
LOC: HO.CT 07:57
PROVIDERS: Visit Provider Internal Medicine Medical Oncology
DX: C82.90 Follicular lymphoma, unspecified, unspecified site (principal)
CPT/HCPCS: 71260; 74177; 82565; Q9967

== ENCOUNTER → 2025-10-06 07:59 | Outpatient (BNV) | payer MEDICARE, MEDICAID, SELFPAY | PROVIDERS: Visit Provider Radiology Diagnostic Radiology | DX: C82.00 Follicular lymphoma grade I, unspecified site (principal); R16.0 Hepatomegaly, not elsewhere classified; I25.10 Atherosclerotic heart disease of native coronary artery without angina pectoris; R91.8 Other nonspecific abnormal finding of lung field; I34.81 Nonrheumatic mitral (valve) annulus calcification | CPT/HCPCS: 71260; 74177 ==

== ENCOUNTER 2025-11-05 10:20 | Outpatient (AMB) | payer MEDICARE, MEDICAID, SELFPAY ==
[2025-11-05 10:25] VITALS: BP 150/92; PULSE 70; RESP 18; O2SAT 97; BMI 37.0
--- NOTE | 2025-11-05 10:25 | MHC.PC.OV ---
Vital Signs 11/05/25 10:25 Height 5 ft 6 in Weight 229 lb 8 oz BMI 37.0 BP 150/92 H Blood Pressure Location Lt brachial Position Sitting Respiration 18 Pulse 70 Pulse Source Pulse Oximeter Temp Source Temporal Artery Scan Pulse Oximetry (%) 97 Oxygen Delivery Method Room Air Intake Visit Reasons: Headache Renewable Energy Technician Required: No Accompanied by: Self / Same As Patient Allergies codeine (CODEINE) Allergy (Mild, Verified 11/05/25 10:48) HIVES acetaminophen (Tylenol-Codeine #3) Allergy (Unknown, Verified 11/05/25 10:48) Unknown cephalexin (Keflex) Allergy (Unknown, Verified 11/05/25 10:48) Vomiting metronidazole (Flagyl) Allergy (Unknown, Verified 11/05/25 10:48) Vomiting Medication List - Last Reconciled 11/05/25 by JESSEE Swift albuterol sulfate 90 mcg/actuation (Ventolin HFA) 2 puffs inhalation QID PRN albuterol sulfate 90 mcg/actuation 2 inhalations inhalation Q6H PRN amlodipine 10 mg PO DAILY barium sulfate 2%(w/v) (Readi-Cat 2) 450 mL PO QID budesonide-formoterol 80-4.5 mcg/actuation (Breyna) 2 puffs inhalation BID cetirizine (All Day Allergy (cetirizine)) 10 mg PO DAILY PRN clotrimazole 1% 1 appl topical BID esomeprazole magnesium 40 mg PO DAILY fluticasone propionate 50 mcg/actuation (Allergy Relief (fluticasone)) 2 sprays intranasal DAILY [Gloves As directed Two boxes a month NS] hyoscyamine sulfate ER 0.375 mg PO Q12H lactulose 30 grams PO BID lorazepam 1 mg PO TID PRN losartan 100 mg PO DAILY [medium gloves As directed] metoprolol succinate ER 100 mg PO DAILY ondansetron 4 mg PO Q8H tizanidine 4 mg PO BEDTIME PRN 15 days Tobacco use date assessed: 11/05/25 Dental Screening Dental Screen Date: 11/05/25 Did you have a dental visit in the last 12 months?: No Did you have a dental problem in the last 6 months where you did not have access to dental care?: No Was dental information given to patient?: No HPI HPI Comments History of Present Illness Details The patient is a 59 year old female presenting for management of hypertension and chronic pain. Regarding her hypertension, she reports it is still high. She has been on metoprolol 100 mg and amlodipine 10 mg. Previously, she was on lisinopril 40 mg for years, which eventually stopped working. She was then tried on valsartan, starting at 160 mg and increasing to 320 mg, which caused kidney issues and a headache that worsened with coughing. She has had episodes of tachycardia with rates up to 141 bpm and blood pressure readings as high as 150/105 mmHg and 202/198 mmHg. She has a cardiology appointment scheduled for November for her blood pressure. The patient suffers from severe, widespread chronic pain involving her back, neck, shoulder blades, hips, and legs, with numbness in one leg down to the foot. She reports a recent week with severe pain that caused insomnia for three days, for which she used lidocaine patches, Aspercreme, and Tylenol Arthritis 650 mg without complete relief. She has a history of degenerative joint disease (DJD) and a spine MRI showing [id number] changes with no disc space. She was scheduled for a knee surgery but missed it due to her 's hospitalization. She has tried magnesium for 6-8 months in the past without benefit. Her medical history is significant for stage 4 cancer, for which she underwent chemotherapy and had a subsequent compromised immune system for seven years. She also has a history of asthmatic bronchitis, fatty liver, GERD, and IBS. A recent CT scan showed pneumonia, for which her business continuity management director proactively treated her with steroids and an antibiotic. She has a history of agoraphobia with panic disorder and is being tapered off lorazepam. Regarding lab results, she notes her vitamin D level was good, but LDL cholesterol and liver/kidney function tests were slightly off. She describes her kidney function as variable over the last couple of years, with some days of overactivity and others of underactivity, sometimes leading to swelling. Health Maintenance - Recent lab work was performed at [facility]. - Patient reports her vitamin D level is good. - LDL cholesterol was noted to be slightly off. - Liver and kidney function tests were reported as slightly elevated, consistent with her history of fatty liver. - Non-fasting glucose was 128, which was deemed acceptable. - Patient drinks 4-6 16.9 oz bottles of water daily. - She consumes coffee with sugar but reports low intake of other added sugars. - Patient has a cardiology follow-up scheduled in November for blood pressure management. Social History - The patient is the primary caregiver for her , who has congestive heart failure (CHF), memory issues, and behavioral issues. - She reports significant stress related to caregiving and financial strain due to a reduction in food stamps. - She reports having quit smoking years ago. - She denies using marijuana, stating it is not helpful for her. - Her diet is restricted by her IBS and financial constraints. - Her job history involved lifting people, which she believes contributes to her current musculoskeletal pain. Results Labs completed at [facility]: TSH 6.5, T4 FREE 0.98, CBC 7.1, RBC 4.53, H&H 13.2/41.0, MCV 91, MCH 29.1, RDW 12.1, PLATELET 275, BUN 12 CR 1.06, GFR 60, NA++ 141, K++ 4.1, CHL 101, CA++ 9.6, CARBON 27, PROTEIN 6.7, ALBUMIN 4.6, BILIRUBIN TOTAL 0.2, ALP 74, AST 28, ALT 39, TOTAL CHOLESTEROL 194, TRIGLYCERIDES 95, HDL 59, LDL 118, VITAMIN-D 30.8 - Labs: - LDL: Results were a little off. - Liver and Kidney Function: Described as up a little bit. - Vitamin D: Level was good. - Glucose: 128 (non-fasting). - Imaging: - CT Chest: Showed pneumonia. - Spine MRI: Last MRI before a planned surgery in July showed pytpnvwx-fb-rawfeiqk changes with no disc space remaining. - Upper GI Endoscopy: Past procedure showed no ulcerations or esophageal issues, with only a slightly upset duodenum. 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 Depression Screening Interpretation: Positive Depression Screening Done: Yes Source: Developed by Drs. Efren Askew, Barbara Mcgee, Osbaldo Zee and colleagues, with an educational shaista from [employer]. Thrive Questionnaire Date Thrive assessed: 11/05/25 I am a: Patient What is your living situation today?: I have a steady place to live Within the past 12 months, did the food you bought not last and you didn't have the money to get more?: Often true Within the past 12 months, did you worry whether your food would run out before you got money to buy more?: Often true Do you have trouble paying for medicines?: Yes Do you have trouble getting transportation to medical appointments?: No Do you have trouble paying your heating and electricity bill?: Yes Do you have trouble taking care of your child, family member or friend?: I choose not to answer this question Do you have trouble with day-to-day activities such as bathing, preparing meals, shopping, managing finances, etc.?: Yes Are you currently unemployed and looking for a job?: No Are you interested in more education?: No Currently or been in a relationship where the following occur: I choose not to answer THRIVE Score: 3 ROVERTO-7 AMB Questionnaire ROVERTO-7 Date ROVERTO - 7 assessed: 07/06/25 Source: Developed by Drs. Efren Askew, Barbara Mcgee, Osbaldo Zee and colleagues, with an educational shaista from [employer]. Review of Systems Narrative Review of Systems - Constitutional: Reports insomnia due to pain. - HEENT: Reports right-sided headaches that are constant and worsen with coughing. - Cardiovascular: Reports episodes of tachycardia. - Respiratory: Reports a dry cough. - Gastrointestinal: Reports constant abdominal pain, stating it is physical pain and not heartburn. - Genitourinary: Reports variable urinary output, with some days being overactive and others underactive, and sometimes no urination despite fluid intake. - Musculoskeletal: Reports widespread, severe pain in her back, neck (C7 area), shoulder blades, hips, and legs. - Neurological: Reports numbness in her leg down to the foot. - Endocrine: Reports edema/swelling. - Psychiatric: Reports significant stress and a history of panic disorder with agoraphobia. Const Reports difficulty sleeping and Reports headache(s) (right sided, worsens with coughing) Eyes Denies loss of vision ENT Denies vertigo, Denies dizziness, Reports headache(s) (right sided, worsens with coughing) and Denies sore throat Card Denies chest pain, Denies leg edema and Denies lightheadedness Resp Reports cough (dry cough on and off), Denies hemoptysis and Denies wheezing GI Reports abdominal pain, Denies melena, Denies constipation, Denies diarrhea and Denies vomiting Denies urinary frequency, Denies dysuria, Denies urinary urgency and Reports other (Alternating between under active and overactive) Musc Reports back pain, Reports arthralgias (multiple), Denies joint swelling, Denies numbness and Denies tingling Skin/Breast Denies lesions and Denies rash Neuro Denies Abnormal speech present, Denies behavioral changes, Denies vertigo, Denies dizziness, Reports headache(s) (right sided, worsens with coughing), Denies loss of vision, Denies memory loss, Denies numbness and Denies tingling Psych Reports anxiety, Denies behavioral changes, Denies depression, Denies memory loss and Reports panic attacks Shukri/Lymph Denies easy bleeding and Denies easy bruising Aller/Immun Denies wheezing Physical exam (Primary Care) Vital Signs: Last Vital Signs Pulse 70 11/05/25 10:25 Resp 18 11/05/25 10:25 BP 150/92 H 11/05/25 10:25 Pulse Ox 97 11/05/25 10:25 Oxygen Delivery Method Room Air 11/05/25 10:25 BMI result Body Mass Index 37.0 Tobacco/Smoking Status: Tobacco use Status Tobacco use date assessed 11/05/25 11/05/25 10:37 Patient Tobacco Use Status Former Tobacco user 11/05/25 10:37 Tobacco use type Cigarette 11/05/25 10:37 e-Cigarette/Vaping Use Currently Using 11/05/25 10:37 Depression Screening Interpretation: Positive Thrive Assessment: Date of Thrive Assessment Date Thrive assessed 11/05/25 11/05/25 10:37 Currently or been in a relationship where the following occur: I choose not to answer Narrative Physical Exam - Vitals: Blood pressure is elevated. - Cardiovascular: On auscultation, S1/S2 are heard. No murmur is appreciated. - Abdomen: Tender to palpation in the epigastric region. Const General: healthy appearing, no acute distress, alert and awake Nutritional Appearance: well nourished Orientation/consciousness: oriented to person, oriented to place and oriented to time HENMT Ears: TM abnormal with myringotomy tube present bilateral General nose exam: Normal nasal mucous membranes and turbinates present Eyes Conjunctivae: conjunctivae normal Sclerae: sclerae normal Pupils: Equal, round and reactive pupils present Neck Neck: Yes no lymphadenopathy and Yes no JVD Thyroid: Thyroid normal Carotids: no bruits Resp Effort & Inspection: normal respiratory effort and not tachypneic Auscultation: no crackles, no rales, no rhonchi and no wheezes Cardio Rate: regular rate Rhythm: regular rhythm Heart sounds: no murmurs and normal S1 and S2 GI Palpation (GI): Soft to palpation, nontender, no hepatomegaly and no splenomegaly Auscultation: normal bowel sounds Back/Spine/Pelvis Thoracic/Lumbar Spine: lumbar spinal tenderness Skin General skin exam: no rashes or lesions noted and dry skin Neuro General: oriented to person, oriented to place and oriented to time Cranial nerves: Yes Equal, round and reactive pupils present Speech: No Abnormal speech present Gait exam (Neuro): Normal gait present Motor exam (neuro): no tremor noted Extrem Right upper extremity: full ROM Left upper extremity: full ROM Right lower extremity: full ROM; no edema Left lower extremity: full ROM; no edema Psych Mental Status: mental status grossly normal Speech and movement: Normal speech and movement present Affect: normal affect Attitude: cooperative Thought process: Normal thought process present Coding Level of Care Code Est Pt Level 4 (01961) Diagnoses Hypertension, unspecified type I10 Hypertension type: unspecified Anxiety F41.9 Vertebrogenic low back pain M54.51 Urinary incontinence, unspecified type R32 Urinary Incontinence type: unspecified incontinence Incontinence type: urinary Chronic tension-type headache, not intractable G44.229 Intractability: not intractable Hyperlipidemia, unspecified hyperlipidemia type E78.5 Hyperlipidemia type: unspecified Time Spent (min) 39 Assessment & Plan Assessment & Plan (1) Hypertension: Code(s): I10 - Essential (primary) hypertension Category: Medical Qualifiers: Hypertension type: unspecified Qualified Code(s): I10 - Essential (primary) hypertension Plan: The patient's hypertension remains uncontrolled on her current regimen of metoprolol and amlodipine. She has a history of lisinopril becoming ineffective and an adverse reaction (kidney issues, headache) to valsartan, especially at higher doses, per patient, self discontinued valsartan. Plan is to initiate losartan 100 mg daily. A follow-up visit is scheduled in four weeks to assess her blood pressure response. (2) Anxiety: Code(s): F41.9 - Anxiety disorder, unspecified Category: Medical Plan: The patient reports increased anxiety due to caregiver stress. She is currently seeing a psychology instructor at [facility]. Currently the patient is looking to switch or the practice is planning on not continuing seeing the patient. This is unclear, according to the patient her med provider is asking to have transparency to be able to see her records from other providers. The patient reports that she will not consent to this and this is none of his business (3) Vertebrogenic low back pain: Code(s): M54.51 - Vertebrogenic low back pain Category: Medical Plan: Lumbar spine MRI from 2020 shows endplate edema and Modic changes at L5-S1. [facility] pain management ordered follow MRI to further assess the patient back with plans for future procedure. She declined the proposed procedure. Per patient, the procedure will only block the nerve that is causing her pain without fixing the actual problem. Discussed with the patient that being medications work similarly. She was offered tramadol and gabapentin but she refused both medications. Reports that only the oxycodone has been helping her, for she has been purchasing this medication when she can affords it from a liable source. (4) Incontinence: Code(s): R32 - Unspecified urinary incontinence Category: Medical Qualifiers: Urinary Incontinence type: unspecified incontinence Incontinence type: urinary Qualified Code(s): R32 - Unspecified urinary incontinence Plan: Reports overactive bladder the causes incontinence. Reduce or eliminate fluid intake a few hours before bedtime limit or eliminate caffeine and alcohol, especially in the evenings. Supplies have been ordered previously. (5) Chronic tension headaches: Code(s): G44.229 - Chronic tension-type headache, not intractable Category: Medical Qualifiers: Intractability: not intractable Qualified Code(s): G44.229 - Chronic tension-type headache, not intractable Plan: Headaches increased with coughing, plus the patient blood pressure has been increasing since stopping valsartan on her own. Reports that she is not seeing her customer counter associate till . Losartan 100 mg daily started. Return in 4 weeks for re-evaluation. Encouraged adequate fluid hydration, start magnesium oxide 400 mg at bedtime and riboflavin 400 mg daily. Explained to the patient that this regimen is usually ordered for migraine. However, the is reporting a changing headache presentation, sometimes, light and sounds bother her and cause headaches. (6) HLD (hyperlipidemia): Code(s): E78.5 - Hyperlipidemia, unspecified Category: Medical Qualifiers: Hyperlipidemia type: unspecified Qualified Code(s): E78.5 - Hyperlipidemia, unspecified Plan: ldl 118 mg/dl, goal less than 100mg/dl discussed dietary modification will continue to monitor lipid panel Plan Plan Patient was informed and verbally consented to the use of an ambient scribe for clinic note documentation during this visit. 1. Hypertension The patient's hypertension remains uncontrolled on her current regimen of metoprolol and amlodipine. She has a history of lisinopril becoming ineffective and an adverse reaction (kidney issues, headache) to valsartan, especially at higher doses, per patient, self discontinued valsartan. Plan is to initiate losartan 100 mg daily. A follow-up visit is scheduled in four weeks to assess her blood pressure response. 2. Chronic Widespread Pain And Headaches The patient reports severe, widespread chronic pain and associated headaches, which are likely multifactorial, stemming from degenerative joint disease, muscle tension, and possibly her elevated blood pressure. She has tried multiple pzpv-jjr-amslkje remedies and magnesium supplements in the past with limited success. The plan is to prescribe magnesium to be taken at bedtime, which may also be taken with a muscle relaxer. It was also suggested she try vitamin B2, which is used for migraines. Has not related to chronic pain, offered the patient tramadol, gabapentin and the patient declined both medication. Reports that only oxycodone works for her. The patient has been examined by pain management, a procedure was offered but she declined. Patient reports that the procedure was only going to deactivate the nerve that is causing her pain but not fix the problem. Discussed with the patient that the oxycodone we will work in his similar way by masking the pain without actually fixing the problem. 3. Gastrointestinal Issues (Fatty Liver, Gerd, Abdominal Pain) The patient reports constant abdominal pain, which she distinguishes from typical GERD-related burning, although she has a history of GERD. She also has a known fatty liver, and her diet is limited due to IBS and financial issues. A prior upper GI endoscopy was reportedly unremarkable. No changes to management were made at this visit, but the symptoms were noted. Discussion Notes I discussed the patient's uncontrolled hypertension and noted her history of medication intolerance and inefficacy. We decided to start losartan 100 mg, and I stressed the importance of lowering her blood pressure, setting a goal of below 130 systolic. We also addressed her severe chronic pain and headaches. I explained that getting her blood pressure down might improve the headaches. For the musculoskeletal component, I prescribed magnesium to be taken at bedtime and suggested trying vitamin B2. We briefly discussed the mechanism of pain medications and nerve ablation procedures, with the patient expressing concern about losing the protective sensation of pain, which is a valid point. I agreed to review her previous spine imaging. I acknowledged her significant life stressors as a caregiver and the potential challenges with follow-up appointments, assuring her that rescheduling is acceptable. I have scheduled a follow-up in four weeks to re-evaluate her blood pressure and discuss her pain further. Patient Instructions - Start taking losartan 100 mg once daily for your blood pressure. - Take the prescribed magnesium supplement at bedtime. This may help with muscle pain and tension. - You can try taking tdrw-gxx-[id number] Vitamin B2, as it may help with your headaches. - Continue to monitor your blood pressure at home. - Please schedule a follow-up appointment in four weeks to check on your blood pressure. - If you are unable to make your follow-up appointment due to your 's health, please call the office to reschedule. It is completely fine. Medications: New losartan 100 mg PO DAILY 60 tabs 3RF magnesium oxide 400 mg PO BEDTIME 90 tabs 3RF NS riboflavin (vitamin B2) 400 mg PO DAILY 90 tabs 3RF
--- OUTSIDE RECORDS SUMMARY | 2025-11-05 11:45 | XMS_ITS | Clinical Summary ---
Author Organization [facility] Prior to 04/17/25 Address [address] [place] [address] Care Team Providers Care Adaptive Physical Education Teacher Name Role Phone Patric Zayas MD Primary Care Provider [phone] Allergies Active Allergy Reactions Criticality Noted Date [...] age to complete this topic Care Teams Adaptive Physical Education Teacher Relationship Specialty Start Date End Date Patric Zayas MD [address] [place] [address], [place] [address] PCP - General Internal Medicine 07/21/21
--- OUTSIDE RECORDS SUMMARY | 2025-11-05 11:45 | XMS_ITS | Clinical Summary ---
Author Organization [facility] [address] [facility] Address [address] [place] [address] Phone Care Team Providers Care Air Crew Supervisor Name Role Phone Patric Zayas DO Primary Care Provider [phone] Allergies Active Allergy Reactions Criticality Noted Date [...] 03/21/21 13:54:00 EDT, Dry Weight 023 Active predniSONE (DELTASONE) 5 mg tablet Take 1 tablet (5 mg total) by mouth 1 (one) time each day. Active bisacodyL (DULCOLAX) 5 mg EC tablet [...] TWICE DAILY 5552 mL 1 025 Active polyethylene glycol (Golytely) 236-22.74-6.74 -5.86 gram solution Take 4L by mouth once for one dose. May substitue any PEG. Starting at 2PM the day before your procedure drink 1 8oz glasses at your own pace until you complete half of the gallon. Finish 2nd half of the gallon at 8PM. 4000 mL 025 Active bisacodyL (DULCOLAX) 5 mg EC tablet Take 2 tablets by mouth right before beginning bowel prep. See instructions provided by the office 2 tablet 025 Active ondansetron ODT (ZOFRAN-ODT) 4 mg disintegrating tabletIndications :Nausea DISSOLVE 1 TABLET(4 MG) ON THE TONGUE EVERY 8 HOURS NEEDED FOR NAUSEA 20 tablet 025 Active hyoscyamine (LEVBID) 0.375 mg 12 hr tabletIndications :Irritable bowel syndrome, unspecified type TAKE 1 TABLET(0.375 MG) BY MOUTH EVERY 12 HOURS NEEDED FOR CRAMPING. DO NOT CRUSH OR CHEW 60 tablet 12 025 Active hyoscyamine (Levbid) 0.375 mg 12 hr tablet Take 1 tablet (0.375 mg total) by mouth every 12 (twelve) hours if needed for cramping. Do not crush or chew. 60 tablet 12 024 2024 Discontinued ondansetron ODT (ZOFRAN-ODT) 4 mg disintegrating tabletIndications :Nausea DISSOLVE 1 TABLET(4 MG) ON THE TONGUE EVERY 8 HOURS NEEDED FOR NAUSEA 20 tablet 2 025 2024 Discontinued Active [...] Pelvis wo and w Contrast; Future Lymphoma 10/01/2024 IBS (irritable bowel syndrome) 10/01/2024 Assessment [...] (09/18/2024): W/ agoraphobia. Arthritis 09/24/2017 Bipolar disorder 09/24/2017 HTN (hypertension) 09/24/2017 Immunizations Immunization Administration Dates Next Due Pneumococcal polysaccharide 23 valent (Pneumovax 23) 2yo and older 01/04/2010 Surgical History Surgery Date Site/Laterality Comments OTHER SURGICAL HISTORY PROCEDURE:left inguinal biopsy OTHER SURGICAL HISTORY PROCEDURE:diverticulosi s ESOPHAGOGASTRODUODENOSCOPY 07/19/2023 - 08/17/2023 COLONOSCOPY Medical History Medical History Date Comments GERD (gastroesophageal reflux disease) DX:GERD (gastroesophageal reflux disease) IBS (irritable bowel syndrome) D X:IBS (irritable bowel syndrome) Lymphoma ([facility] V24, [facility] V28) DX:Lymphoma (HCC) Social History Tobacco Use Types Packs/Day Years Used Date Smoking Tobacco: Former Cigarettes Smokeless Tobacco: Former Tobacco Cessation:Counseling Given: Not Answered Alcohol Use Standard Drinks/Week Comments Not Currently 0 (1 standard drink = 0.6 oz pur e alcohol) ? Comments Unknown Sex and Gender Information Value Date Recorded Sex Assigned at Not on file Legal Sex Female 10:03 PM EST Gender Identity Choose not to disclose 4:06 PM EST Sexual Orientation Choose not to disclose 2023 4:06 PM EST Last Filed Vital Signs Vital Sign Reading [...] 03/31/2025 1:41 PM EDT Plan of Treatment Health Maintenance Due Date Last Done Comments Breast Cancer Screening 1965 Colorectal Cancer Screening: Colonoscopy 1965 Drug Screen 1964 Non-Opioid Controlled Substance Agreement 1964 DTaP,Tdap,and Td Vaccines (1 - Tdap) 1983 Zoster Vaccines (1 of 2) 1983 Cervical Cancer Screening: P ap Smear 1985 Pneumococcal Vaccine: 50+ Years (2 of 2 - PCV) 01/04/2011 01/04/2010 COVID-19 Vaccine (3 - Modern a risk series) 06/13/2021 05/16/2021, 04/18/2021 HIV Screening 10/25/2022 Medicare Annual Wellness Visit [...] Comprehensive metabolic panel (11/12/2024 3:18 PM EST) [facility] Signature Sodium 142 133 - 145 mmol/L LAB CHEMISTRY METHOD 11/12/2024 5:09 PM EST [facility] Potassium 3.7 3.5 - 5.5 mmol/L LAB CHEMISTRY METHOD 11/12/2024 5:09 PM [facility] Chloride 112(H) 96 - 110 mmol/L LAB CHEMISTRY METHOD 11/12/2024 5:09 PM [facility] CO2 27 21 - 32 mmol/L LAB CHEMISTRY METHOD 11/12/2024 5:09 PM [facility] Anion Gap 3 3 - 11 LAB CHEMISTRY METHOD 11/12/2024 5:09 PM [facility] Glucose 104(H) 70 - 100 mg/dL LAB CHEMISTRY METHOD 11/12/2024 5:09 PM [facility] BUN 11 5 - 25 mg/dL LAB CHEMISTRY METHOD 11/12/2024 5:09 PM [facility] Creatinine 0.84 0.50 - 1.30 mg/dL LAB CHEMISTRY METHOD 11/12/2024 5:09 PM [facility] eGFR 80 >=60 mL/min/1. 73m2 LAB CHEMISTRY METHOD 11/12/2024 5:09 PM [facility] Comment: For non-binary individuals or unknown sex, the equation for female sex is used to calculate the estimated glomerular filtration rate (eGFR). Calculation based on the Chronic Kidney Disease Epidemiology Collaboration (CKD-EPI) equation refit without adjustment for race. BUN/Creatinine Ratio 13.1 LAB CHEMISTRY METHOD 11/12/2024 5:09 PM [facility] Calcium 9.2 8.5 - 10.5 mg/dL LAB CHEMISTRY METHOD 11/12/2024 5:09 PM [facility] AST (SGOT) 13 10 - 42 unit/L LAB CHEMISTRY METHOD 11/12/2024 5:09 PM [facility] ALT (SGPT) 22 10 - 60 unit/L LAB CHEMISTRY METHOD 11/12/2024 5:09 PM [facility] Alkaline Phosphatase 63 42 - 121 unit/L LAB CHEMISTRY METHOD 11/12/2024 5:09 PM [facility] Total Protein 6.5 6.0 - 8.0 g/dL LAB CHEMISTRY METHOD 11/12/2024 5:[address] [facility] Albumin 3.9 3.2 - 5.0 g/dL LAB CHEMISTRY METHOD 11/12/2024 5:[address] [facility] Total Bilirubin 0.5 0.0 - 1.4 mg/dL LAB CHEMISTRY METHOD 11/12/2024 5:[address] [facility] Blood Blood sample taken from central line / Unknown Existing Catheter / Unknown 11/12/2024 3:18 PM EST 11/12/2024 4:38 PM EST Paul Mir MD LAB BLOOD ORDERABLES Final R esult [facility] [address] [place] [address], * Hepatitis C Screening (07/23/2019) Hepatitis C Screening abstracted Historical Provider HEALTH [...] Relevant to Health Maintenance Insurance [address] [place] [address] MEDICARE MEDICAID - [place] Care Teams Air Crew Supervisor Relationship Specialty Start Date End Date Patric Zayas DO [address] [place] [id number] PCP - General Internal Medicine 07/21/21
== END 2025-11-05 11:31 | disposition home or self-care (01) ==
LOC: HO.HMCH 10:21
DX: I10 Essential (primary) hypertension (principal); F41.9 Anxiety disorder, unspecified; M54.51 Vertebrogenic low back pain; R32 Unspecified urinary incontinence; G44.229 Chronic tension-type headache, not intractable; E78.5 Hyperlipidemia, unspecified

== ENCOUNTER → 2025-11-05 10:20 | Outpatient (BNVA) | payer MEDICARE, MEDICAID, SELFPAY | DX: I10 Essential (primary) hypertension (principal); M54.51 Vertebrogenic low back pain; G89.29 Other chronic pain; G44.229 Chronic tension-type headache, not intractable; E78.5 Hyperlipidemia, unspecified; F41.9 Anxiety disorder, unspecified; Z79.899 Other long term (current) drug therapy; K21.9 Gastro-esophageal reflux disease without esophagitis; R10.9 Unspecified abdominal pain; K76.0 Fatty (change of) liver, not elsewhere classified | CPT/HCPCS: 99212 ==